=== PATIENT | male | born 1935 | race Caucasian/White ===

== ENCOUNTER 2018-04-23 11:16 | Inpatient (IN) | payer MEDICARE, OTHER | END 2018-04-24 19:03 | disposition home or self-care (01) | LOC: SUR 11:16 → CENTRAL 15:50 | PROC: 0VB08ZZ Excision of Prostate, Via Natural or Artificial Opening Endoscopic (ICD-10-PCS; principal; 2018-04-23 12:27) | PROC: 0TCB8ZZ Extirpation of Matter from Bladder, Via Natural or Artificial Opening Endoscopic (ICD-10-PCS; 2018-04-23 12:27) | DX: N40.1 Benign prostatic hyperplasia with lower urinary tract symptoms (principal); R33.8 Other retention of urine; N21.0 Calculus in bladder ==

== ENCOUNTER 2024-05-22 17:10 | Inpatient (IN) | payer MEDICARE, BC ==
[~2024-05-22] VITALS: Ht 167.6 cm; Wt 84.0 kg
[~2024-05-22 17:10] MED LIST: ASPI-543 PO; CLOP75TA28 PO; EVOL140I SC; FAMO-12 PO; FURO1TAB31 PO; MET25T PO; POTA-220 PO; TAMS0.4C39 PO
[2024-05-22 17:40] VITALS: PULSE 80; RESP 18; O2SAT 94
[2024-05-22] MEDS: SODIUM CHLORIDE 0.9% 1,000 ML IV ONE (17:43)
[2024-05-22 18:37] LABS: Basophils # (auto) 0 10 ^3/uL (0-0.2); Eosinophils # (auto) 0 10 ^3/uL (0-0.8); Lymphocytes # (auto) 0.4 10 ^3/uL (0.4-5.4); Monocytes # (auto) 0.6 10 ^3/uL (0-1.3); Neutrophils # (auto) 3.9 10 ^3/uL (1.6-8.6); Nucleated Red Blood Cells % 0.2 %
[2024-05-22 18:38] LABS: Basophils % (auto) 0.7 % (0.0-2.0); Eosinophils % (auto) 0.6 % (0.0-7.0); Hematocrit 42.4 % (41.0-53.0); Hemoglobin 14.1 g/dL (13.5-17.5); Lymphocytes % (auto) 8.9 % (10.0-50.0); Mean Corpuscular Hemoglobin 35.5 pg (28.0-32.0); Mean Corpuscular Hgb Conc. 33.2 g/dL (32.0-36.0); Mean Corpuscular Volume 106.9 fL (80.0-100.0); Monocytes % (auto) 11.6 % (0.0-12.0); Neutrophils % (auto) 78.2 % (37.0-80.0); Platelet Count (auto) 139 10^3/uL (140-450); Red Blood Cells 3.97 10^6/uL (4.5-5.90); Red Cell Distribution Width 15.1 % (11.8-14.3); White Blood Cell 4.9 10^3/uL (4.4-10.8)
--- NOTE | 2024-05-22 18:42 | DVH ---
CLINICAL INFORMATION: 88 years old, Male; diarrhea. Left lower quadrant pain. TECHNIQUE: Axial CT images of the abdomen and pelvis were obtained without IV contrast. Coronal and s agittal reformatted images were obtained, reviewed, and stored. Evaluation of the parenchymal organs is limited without IV contrast. Evaluation of the bowel and mesentery is limited without oral contras t. All CT scans at this medical facility are performed using dose modulation techniques as appropriat e to a performed exam including the following: Automated exposure control was utilized; adjustment of the MA and/or KV according to patient size; and use of iterative reconstruction technique. CTDIvol = 6.77 mGy DLP = 354.5 mGy-cm COMPARISON: None FINDINGS: Limited examination due to motion artifact. Lung bases: Partially visualized small right and moderate left pleural effusions with overlying atele ctasis fibrotic changes in the lung bases moderate to marked cardiomegaly. 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 Dense mitral annular calcification pacemaker leads exten d to the right atrium and right ventricle. Liver: Grossly unremarkable given the limitations of the exam. Biliary: No calcified gallstones visualized. Spleen: Unremarkable. Pancreas: Atrophic pancreas, not well visualized. Adrenal glands: Partially obscured by motion artifact. Kidneys: No hydronephrosis. Calcifications at the renal rolo bilaterally, appear to be arterial calci fications. Aorta/Vascular: Dense calcification. No abdominal aortic aneurysm. Retroperitoneum: No mass or lymphadenopathy. Bowel/mesentery: Nonspecific nondilated fluid-filled small bowel loops. Appendix is not visualized. T here is mild stranding adjacent to the rectum, possible proctitis. Pelvic organs: Enlarged prostate with impression on the bladder base. Bladder: There are multiple bladder diverticula. There are calculi within the posterior bladder and w ithin the left posterior bladder diverticulum. Abdominal wall: Diffuse body wall edema / anasarca. Left inguinal hernia contains a loop of sigmoid c olon without evidence of obstruction. Bones: No acute fracture or suspicious intraosseous lesion. Chronic appearing deformity of the L5 ama tebral body with up to 20% loss of height. IMPRESSION: 1. Motion limited study. 2. Perirectal inflammatory changes, possible proctitis. 3. Enlarged prostate with impression on the bladder base. 4. Multiple bladder diverticula and bladder calculi. 5. Partially visualized small right and moderate left pleural effusions with overlying atelectasis. 6. Partially visualized cardiomegaly and additional findings as detailed above. 7. Nonspecific nondilated fluid-filled small bowel loops. Findings may be seen with ileus or enterit is in the appropriate clinical setting. No small bowel obstruction. 8. Left inguinal hernia contains a loop of sigmoid colon without evidence for obstruction.
[2024-05-22 18:46] LABS: Urine Bacteria None Seen /hpf (None Seen)
[2024-05-22 18:49] LABS: Alanine Aminotransferase 17 U/L (7-40); Albumin 3.5 g/dL (3.2-4.8); Alkaline Phosphatase 63 U/L (46-116); Anion Gap 9 (5-15); Aspartate Aminotransferase 18 U/L (13-40); BUN/Creatinine Ratio 22.5 (10.0-20.0); Bilirubin, Total 1.1 mg/dL (0.2-1.0); Blood Urea Nitrogen 18 mg/dL (9-23); Calcium 9.2 mg/dL (8.7-10.4); Carbon Dioxide 24 mmol/L (20-31); Glucose 102 mg/dL (74-106); Sodium 140 mmol/L (136-145)
[2024-05-22 18:52] LABS: Chloride 107 mmol/L (98-107); Total Protein 5.5 g/dL (5.7-8.2)
[2024-05-22 19:01] LABS: Urine Blood 2+ /uL (Negative); Urine Clarity Clear (Clear); Urine Color Yellow (Yellow); Urine Hyaline Cast FEW /lpf (0 - 2); Urine Mucus FEW (None Seen); Urine Protein, UAD TRACE (Negative); Urine Specific Gravity 1.017 (1.001-1.035); Urine Squamous Epithelial Cell FEW /hpf (<5); Urine Urobilinogen Normal (Negative); Urine WBC 3 /HPF (0-3); Urine pH 5.5 (5.0-9.0)
--- NOTE | 2024-05-22 19:07 | ED.PDOC ---
History of Present Illness HPI Comments 88Y M with PMHx CHF, CAD, thyroid disease, dementia, and pacemaker presents to ED via EMS for chief complaint abd pain x2days with diarrhea. Patient localizes the pain to the left lower quadrant of his abdomen. Pt is currently A&Ox2. No family present at bedside. Per EMS, pt rhythm was 20-100 paced. Patient is extremely hard of hearing, and is a difficult historian, so no additional history is obtainable from the patient. No other symptoms reported. Chief Complaint: Abdominal Pain Time Seen by MD: 18:35 Reviewed Notes: Nurses Notes, Poultry Dresser Notes, Medications, Allergies Allergies: Coded Allergies: Fentanyl (Verified Allergy, Severe, 04/20/18) Midazolam (Verified Allergy, Severe, 04/20/18) Acetaminophen (Verified Allergy, Unknown, 04/20/18) Albuterol (Verified Allergy, Unknown, 04/20/18) Home Meds Reported Medications Tamsulosin Hcl (Tamsulosin Hcl) 0.4 Mg Cap, 0.4 MG PO QPM for 30 Days, MG 04/20/18 Famotidine (Famotidine) 20 Mg Tab, 20 MG PO BID for 30 Days, MG 04/20/18 Potassium Chloride (Klor-Con M20) 20 Meq Tab, 20 MEQ PO BID, TAB 04/20/18 Furosemide (Lasix) 40 Mg Tab, 40 MG PO BID, TAB 04/20/18 Aspirin (Aspir-Low) 81 Mg Tab, 81 MG PO DAILY for 30 Days, MG 04/20/18 Clopidogrel Bisulfate (Plavix) 75 Mg Tab, 1 TAB PO DAILY, #90 TAB 1 Refill 04/20/18 Information Source: Patient, Relative (Child), Emergency Med Personnel Mode of Arrival: EMS Severity: Moderate Timing: Days Duration: Since onset Prehospital treatment: None Past Medical History PAST MEDICAL HISTORY: CAD, CHF, Dementia, Thyroid Surgical History: Pacemaker Family History Family History: Unknown Social History Smoker: Unknown Alcohol: Unknown Drugs: Unknown Constitutional: denies: chills, diaphoresis, fatigue, fever, malaise, sweats, weakness, others EENTM: denies: blurred vision, double vision, ear bleeding, ear discharge, ear drainage, ear pain, ear ringing, eye pain, eye redness, hearing loss, mouth p ain, mouth swelling, nasal discharge, nose bleeding, nose congestion, nose pain, photophobia, tearing, throat pain, throat swelling, voice changes, others Respiratory: denies: cough, hemoptysis, orthopnea, SOB at rest, shortness of br eath, SOB with excertion, stridor, wheezing, others Cardiovascular: denies: chest pain, dizzy spells, diaphoresis, Dyspnea on exertion, edema, irregular heart beat, left arm pain, lightheadedness, palpitations, PND, syncope, others Gastrointestinal: reports: abdominal pain, diarrhea; denies: abdomen distended, blood streaked bowels, constipated, dysphagia, difficulty swallowing, hematemesis, melena, nausea, poor appetite, poor fluid intake, rectal bleeding, rectal pain, vomiting, others Genitourinary: denies: burning, dysuria, flank pain, frequency, hematuria, incontinence, penile discharge, penile sore, pain, testicle pain, testicle swelling, urgency, others Neurological: denies: dizziness, fainting, headache, left sided numbness, left sided weakness, numbness, paresthesia, pre-existing deficit, right sided numbness, right sided weakness, seizure, speech problems, tingling, tremors, weakness, others Musculoskeletal: denies: back pain, gout, joint pain, joint swelling, muscle pain, muscle stiffness, neck pain, others Integumetry: denies: bruises, change in color, change in hair/nails, dryness, laceration, lesions, lumps, rash, wounds, others Allergic/Immunocompromised: denies: Difficulty Healing, Frequent Infections, Hives, Itching, others Hematologic/Lymphatic: denies: anemia, blood clots, easy bleeding, easy bruising, swollen glands, others Endocrine: denies: excessive hunger, excessive sweating, excessive thirst, excessive urination, flushing, intolerance to cold, intolerance to heat, unexplained weight gain, unexplained weight loss, others Psychiatric: denies: anxiety, bipolar disorder, depression, hopeless, panic disorder, schizophrenia, sleepless, suicidal, others Unable to Obtain due to: Altered Mental Status All Other Systems: Reviewed and Negative Physical Exam General Appearance: No Apparent Distress HEENT: Other (Pupils and face symmetric. Dry mucous membranes.) Neck: Full Range of Motion, Normal Inspection Respiratory: Lungs Clear, No Accessory Muscle Use, No Respiratory Distress, Normal Breath Sounds Cardiovascular: No Edema, No JVD, Regular Rate/Rhythm Breast Exam: Deferred Gastrointestinal: LLQ, Soft, Tenderness Genitalia: Deferred Pelvic: Deferred Rectal: Deferred Extremities: Normal inspection, Normal range of motion, Non-tender, No pedal edema Neurologic: Alert (Oriented x2), Normal Affect, Normal Mood, Other (Hearing deficit. Moves all extremities.) Cerebellar Function: NOT DONE Reflexes: NOT DONE Skin: Dry, Pallor, Warm Lymphatic: NOT DONE Was a procedure done? Was a procedure done?: No EKG EKG : Comments Ventricular paced rhythm, rate 75 Differential Dx Considerations may include: Enteritis, colitis, diverticulitis, bowel obstruction, ischemic bowel, UTI, kidney stone, electrolyte imbalance, hypovolemia/dehydration, among others X-Ray, Labs, Meds, VS Vital Signs Date Time Temp Pulse Resp B/P (MAP) Pulse Ox O2 Delivery O2 Flow Rate FiO2 05/22/24 18:33 60 16 119/67 (84) 96 05/22/24 17:40 80 18 94 Nasal Cannula* 2 28 05/22/24 17:14 98.6 61 14 128/66 (86) 96 05/22/24 17:14 98.6 61 14 128/66 (86) 96 98.6 05/22/24 17:12 75 Lab Test 05/22/24 21:04 05/22/24 19:31 05/22/24 18:44 05/22/24 18:08 Range/Units Troponin I High Sensitivity 79 *H 73 *H 74 *H </=54 ng/L Urine Color Yellow Yellow Urine Clarity Clear Clear Urine pH 5.5 5.0-9.0 Urine Specific [place] 1.017 1.001-1.035 Urine Protein Trace H Negative Urine Ketones Negative Negative Urine Blood 2+ H Negative /uL Urine Nitrite Negative Negative Urine Bilirubin Negative Negative Urine Urobilinogen Normal Negative mg/dL Urine Leukocyte Esterase Negative Negative /uL Urine RBC 80 0 - 3 /hpf Urine Microscopic WBC 3 0-3 /HPF Urine Squamous Epithelial Cells Few <5 /hpf Urine Bacteria None seen None Seen /hpf Urine Hyaline Casts Few 0 - 2 /lpf Urine Mucus Few None Seen Urine Glucose Normal Normal mg/dL White Blood Count 4.9 4.4-10.8 10^3/uL Red Blood Count 3.97 L 4.5-5.90 10^6/uL Hemoglobin 14.1 13.5-17.5 g/dL Hematocrit 42.4 41.0-53.0 % Mean Corpuscular Volume 106.9 H 80.0-100.0 fL Mean Corpuscular Hemoglobin 35.5 H 28.0-32.0 pg Mean Corpuscular Hemoglobin Concent 33.2 32.0-36.0 g/dL Red Cell Distribution Width 15.1 H 11.8-14.3 % Platelet Count 139 L 140-450 10^3/uL Mean Platelet Volume 10.5 6.9-10.8 fL Neutrophils (%) (Auto) 78.2 37.0-80.0 % Lymphocytes (%) (Auto) 8.9 L 10.0-50.0 % Monocytes (%) (Auto) 11.6 0.0-12.0 % Eosinophils (%) (Auto) 0.6 0.0-7.0 % Basophils (%) (Auto) 0.7 0.0-2.0 % Neutrophils # (Auto) 3.9 1.6-8.6 10 ^3/uL Lymphocytes # (Auto) 0.4 0.4-5.4 10 ^3/uL Monocytes # (Auto) 0.6 0-1.3 10 ^3/uL Eosinophils # (Auto) 0 0-0.8 10 ^3/uL Basophils # (Auto) 0 0-0.2 10 ^3/uL Nucleated Red Blood Cells 0.2 % Sodium Level 140 136-145 mmol/L Potassium Level 4.0 3.5-5.1 mmol/L Chloride Level 107 98-107 mmol/L Carbon Dioxide Level 24 20-31 mmol/L Anion Gap 9 5-15 Blood Urea Nitrogen 18 9-23 mg/dL Creatinine 0.80 0.700-1.30 mg/dL Glomerular Filtration Rate Calc 85 >90 mL/min BUN/Creatinine Ratio 22.5 H 10.0-20.0 Serum Glucose 102 74-106 mg/dL Lactic Acid Level 1.5 0.4-2.0 mmol/L Calcium Level 9.2 8.7-10.4 mg/dL Total Bilirubin 1.1 H 0.2-1.0 mg/dL Aspartate Amino Transferase (AST) 18 13-40 U/L Alanine Aminotransferase (ALT) 17 7-40 U/L Alkaline Phosphatase 63 46-116 U/L B-Type Natriuretic Peptide 1583.60 0-100 pg/mL Total Protein 5.5 L 5.7-8.2 g/dL Albumin 3.5 3.2-4.8 g/dL Current Medications Medications (Trade) Dose Ordered Sig/Taryn Route Start Time Stop Time Status Last Admin Sodium Chloride 1,000 ml @ 1,000 mls/hr Q1H ONCE IV 05/22/24 17:30 05/22/24 18:29 DC 05/22/24 17:43 Ceftriaxone Sodium 50 ml @ 100 mls/hr ONCE ONCE IV 05/22/24 22:45 05/22/24 23:14 DC 05/22/24 23:16 Metronidazole 100 ml @ 100 mls/hr ONCE ONCE IV 05/22/24 22:45 05/22/24 23:44 DC 05/22/24 23:42 ORDERING PHYSICIAN: UMAIR CAST MD PROCEDURE(s): ABPL - CT AB PEL WO CON-NO ORAL OR IV REASON: diarrhea llq pain ORDER NUMBER(s): [id number], ACCESSION NUMBER(s): [id number] CLINICAL INFORMATION: 88 years old, Male; diarrhea. Left lower quadrant pain. TECHNIQUE: Axial CT images of the abdomen and pelvis were obtained without IV contrast. Coronal and sagittal reformatted images were obtained, reviewed, and stored. Evaluation of the parenchymal organs is limited without IV contrast. Evaluation of the bowel and mesentery is limited without oral contrast. All CT scans at this medical facility are performed using dose modulation techniques as appropriate to a performed exam including the following: Automated exposure control was utilized; adjustment of the MA and/or KV according to patient size; and use of iterative reconstruction technique. CTDIvol = 6.77 mGy DLP = 354.5 mGy-cm COMPARISON: None FINDINGS: Limited examination due to motion artifact. Lung bases: Partially visualized small right and moderate left pleural effusions with overlying atelectasis fibrotic changes in the lung bases moderate to marked cardiomegaly. Post surgical changes of prior transcatheter aortic valve replacement. Dense mitral annular calcification pacemaker leads extend to the right atrium and right ventricle. Liver: Grossly unremarkable given the limitations of the exam. Biliary: No calcified gallstones visualized. Spleen: Unremarkable. Pancreas: Atrophic pancreas, not well visualized. Adrenal glands: Partially obscured by motion artifact. Kidneys: No hydronephrosis. Calcifications at the renal rolo bilaterally, appear to be arterial calcifications. Aorta/Vascular: Dense calcification. No abdominal aortic aneurysm. Retroperitoneum: No mass or lymphadenopathy. Bowel/mesentery: Nonspecific nondilated fluid-filled small bowel loops. Appendix is not visualized. There is mild stranding adjacent to the rectum, possible proctitis. Pelvic organs: Enlarged prostate with impression on the bladder base. Bladder: There are multiple bladder diverticula. There are calculi within the posterior bladder and within the left posterior bladder diverticulum. Abdominal wall: Diffuse body wall edema / anasarca. Left inguinal hernia contains a loop of sigmoid colon without evidence of obstruction. Bones: No acute fracture or suspicious intraosseous lesion. Chronic appearing deformity of the L5 vertebral body with up to 20% loss of height. IMPRESSION: 1. Motion limited study. 2. Perirectal inflammatory changes, possible proctitis. 3. Enlarged prostate with impression on the bladder base. 4. Multiple bladder diverticula and bladder calculi. 5. Partially visualized small right and moderate left pleural effusions with overlying atelectasis. 6. Partially visualized cardiomegaly and additional findings as detailed above. 7. Nonspecific nondilated fluid-filled small bowel loops. Findings may be seen with ileus or enteritis in the appropriate clinical setting. No small bowel obstruction. 8. Left inguinal hernia contains a loop of sigmoid colon without evidence for obstruction. X-Ray, Labs, Meds, VS Comment 88Y M with PMHx CHF, CAD, thyroid disease, dementia, and pacemaker presents to ED via EMS for chief complaint left lower quadrant abd pain x2days with diarrhea. Vitals remarkable for oxygen saturation 94% on 2 L nasal cannula Exam remarkable for left lower quadrant tenderness to palpation Rhythm strip independently interpreted by me: Sinus rhythm, rate 75, no ectopy. Chest x-ray pending CT abdomen and pelvis IMPRESSION: 1. Motion limited study. 2. Perirectal inflammatory changes, possible proctitis. 3. Enlarged prostate with impression on the bladder base. 4. Multiple bladder diverticula and bladder calculi. 5. Partially visualized small right and moderate left pleural effusions with overlying atelectasis. 6. Partially visualized cardiomegaly and additional findings as detailed above. 7. Nonspecific nondilated fluid-filled small bowel loops. Findings may be seen with ileus or enteritis in the appropriate clinical setting. No small bowel obstruction. 8. Left inguinal hernia contains a loop of sigmoid colon without evidence for obstruction. CBC remarkable for platelets 139, metabolic panel unremarkable, lactate normal, UA positive for blood, protein and RBCs, serial troponin 74, 73 and 79, BNP 1583.6 Patient treated with the following in the ED: L 0.9 normal saline IV bolus, Rocephin 1 g IV, Flagyl 500 mg IV, aspirin 325 mg p.o. On re-evaluation, patient is resting comfortably with stable vitals. Plan is to admit the patient for IV antibiotics, GI and Cardiology evaluation. Time of 1ST Reevaluation: 19:05 Reevaluation 1ST: Unchanged Patient Education/Counseling: Diagnosis, Treatment Family Education/Counseling: No Family Present Departure 1 Departure Time of Disposition: 21:30 Impression: Primary Impression: Proctitis Additional Impressions: Enteritis Elevated troponin Disposition: ADMITTED INPATIENT Admit to: Tele Condition: Guarded Critical Care Note Critical Care Time?: No Stability Stability form required: No Heart Score Heart Score: Heart Score Response (Comments) Value History N/A 0 EKG N/A 0 Age N/A 0 Risk Factors N/A 0 Troponin N/A 0 Total 0 I personally scribed for UMAIR CAST MD ([email or web address]) on 05/22/24 at 19:07. Electronically submitted by Vero Braswell ([email or web address]). UMAIR CAST MD May 22, 2024 19:07
[2024-05-22 19:57] VITALS: PULSE 75; RESP 17; O2SAT 100
[2024-05-22] MEDS: cefTRIAXone 1GM/50ML D5W 50 ML IV ONE (23:16)
[2024-05-22] MEDS: metroNIDAZOLE 500MG/100ML 100 ML IV ONE (23:42)
[2024-05-22] MEDS ORDERED: ONDANSETRON HCL 4 MG/2 ML VIAL IV PRN (23:45)
[2024-05-22] MEDS ORDERED: DOCUSATE SOD 100 MG CAP PO PRN (23:45)
[2024-05-23] VITALS (9 sets, daily range): BP systolic 117–133; BP diastolic 46–55; PULSE 65–96; RESP 16–19; TEMP 96.3–97.7; O2SAT 96–100
[2024-05-23] MEDS: ASPirin 81 mg TAB PO ONE (00:03)
--- NOTE | 2024-05-23 01:17 | DVH ---
CHEST RADIOGRAPH Indication: elevated trop Technique: Single frontal view of the chest was obtained COMPARISON: None FINDINGS: Lines and Tubes: Dual-lead pacemaker overlying left chest wall. Lungs: Pulmonary edema. Pleura: Probable small bilateral pleural effusions. No pneumothorax. Cardiomediastinal contours: Moderate cardiomegaly. Bones: Unremarkable IMPRESSION: Cardiomegaly and pulmonary edema.
[2024-05-23] MEDS: ASPirin 325 MG TAB PO ONE (01:50)
[2024-05-23] MEDS ORDERED: MORPHINE SULFATE INJ 2 MG/ml SYRG IV PRN (02:00)
[2024-05-23] MEDS ORDERED: NITROGLYCERIN 0.4 MG SL TAB SL PRN (02:00)
--- NOTE | 2024-05-23 02:17 | DVHHP2 ---
History of Present Illness Reason for Visit: Acute exacerbation of congestive heart failure History of Present Illness The patient is a 88-year-old male hard of hearing with past medical history of C HF, dementia, Coronary artery disease, and thyroid disease who presented to [facility] ED with complaint of abdominal pain and diarrhea for the past 2 days. Patient was seen and evaluated in the ED, laboratory data shows WBC 4.9, platelets 139, sodium 140, potassium 4.0, BUN 18, creatinine 0.80, GFR 85, glucose 102, total bilirubin 1.1, troponin 74, protein 5.5, BNP 1931.31, blood pressure 119/67, heart rate 60, temperature 98.6 F, O2 saturation 96% on oxygen. Abdomen/pelvis CT revealing enlarged prostate with impression on the bladder base, perirectal inflammatory changes, possible proctitis, nonspecific nondilated fluid-filled small bowel loops; findings may be seen with ileus or enteritis, no small bowel obstruction. Chest x-ray revealing cardiomegaly and pulmonary edema. Patient was started on IV antibiotic regimen Rocephin, given IV Lasix, please see medication orders section in the computer. On my assessment, patient denied chest pain, no headache, no dizziness, currently on oxygen, no diarrhea, no nausea, no vomiting, no fever, no chills. Patient was admitted for further evaluation and medical management. Past Medical History CAD, CHF, Dementia, Thyroid Past Surgical History Pacemaker Family History Reviewed, noncontributory to the management of this case. Past Social History The patient lives at home, denies smoking, alcohol or illicit drugs abuse. Review of Systems Constitutional: Yes: Weakness; No: Fever, Chills, Sweats, Malaise, Other Eyes: No: Pain, Vision change, Conjunctivae inflammation, Eyelid inflammation, Other, Redness ENT: No: Ear pain, Ear discharge, Nose pain, Nose discharge, Nose congestion, Mouth pain, Mouth swelling, Throat pain, Throat swelling, Other Respiratory: Shortness of breath; No: Cough, Dry, SOB with excertion, Wheezing, Hemoptysis, Pleuritic Pain, Sputum, Wheezing, Other Cardiovascular: No: Chest Pain, Palpitations, Orthopnea, Paroxysmal Noc. Dyspnea, Edema, Lt Headedness, Other Gastrointestinal: Abdominal Pain, Diarrhea; No: Nausea, Vomiting, Constipation, Melena, Hematochezia, Other Genitourinary: No Dysuria, No Frequency, No Incontinence, No Hematuria, No Retention, No Other Musculoskeletal: No: other, neck pain, shoulder pain, arm pain, back pain, hand pain, leg pain, foot pain Skin: No: Rash, Lesions, Jaundice, Bruising, Other Neurological: No: Weakness, Numbness, Incoordination, Change in speech, Confusion, Seizures, Other Allergies: Coded Allergies: Fentanyl (Verified Allergy, Severe, 04/20/18) Midazolam (Verified Allergy, Severe, 04/20/18) Acetaminophen (Verified Allergy, Unknown, 04/20/18) Albuterol (Verified Allergy, Unknown, 04/20/18) Medications Current Medications Medications Dose Ordered Sig/Taryn Route Start Time Stop Time Status Last Admin Dose Admin Aspirin 81 mg DAILY PO 05/23/24 10:00 Ceftriaxone Sodium 50 ml @ 100 mls/hr DAILY@09 IV 05/24/24 09:00 Metronidazole 100 ml @ 100 mls/hr Q8HR IV 05/23/24 06:00 Furosemide 20 mg DAILY IV 05/23/24 10:00 Sodium Chloride 10 ml Q8HR IV 05/23/24 06:00 Ondansetron HCl 4 mg Q4HP PRN IV 05/22/24 23:45 Docusate Sodium 100 mg BIDPRN PRN PO 05/22/24 23:45 Exam Vital Signs Vital Signs Date Time Temp Pulse Resp B/P (MAP) Pulse Ox O2 Delivery O2 Flow Rate FiO2 05/22/24 22:00 75 18 132/58 (82) 100 05/22/24 19:57 98.0 98.0 05/22/24 19:57 Nasal Cannula* 2 28 General Appearance: Alert, Cooperative, No acute distress, Other (Oriented x2) HEENT: Atraumatic, PERRLA, EOMI, Mucous membr. moist/pink Respiratory: Normal air movement, Other (Diminished breath sounds) Cardiovascular: Regular rate, Normal S1, Normal S2, No murmurs Abdominal: Normal bowel sounds, Soft, No tenderness, No hepatospenomegaly, No masses Extremities: No clubbing, No cyanosis, No edema, Normal pulses, No tenderness/swelling Skin: No rashes, No breakdown, No significant lesion Neuro: Normal speech, Normal tone, Sensation intact, Cranial nerves 3-12 NL, Reflexes 2+, Other (Generalized weakness) Psych/Mental Status: Mental status NL, Mood NL Labs/Xrays Labs Test 05/23/24 01:05 05/22/24 23:50 05/22/24 18:44 05/22/24 18:08 Range/Units Troponin I High Sensitivity 87 *H </=54 ng/L B-Type Natriuretic Peptide 1931.31 0-100 pg/mL Urine Color Yellow Yellow Urine Clarity Clear Clear Urine pH 5.5 5.0-9.0 Urine Specific [place] 1.017 1.001-1.035 Urine Protein Trace H Negative Urine Ketones Negative Negative Urine Blood 2+ H Negative /uL Urine Nitrite Negative Negative Urine Bilirubin Negative Negative Urine Urobilinogen Normal Negative mg/dL Urine Leukocyte Esterase Negative Negative /uL Urine RBC 80 0 - 3 /hpf Urine Microscopic WBC 3 0-3 /HPF Urine Squamous Epithelial Cells Few <5 /hpf Urine Bacteria None seen None Seen /hpf Urine Hyaline Casts Few 0 - 2 /lpf Urine Mucus Few None Seen Urine Glucose Normal Normal mg/dL White Blood Count 4.9 4.4-10.8 10^3/uL Red Blood Count 3.97 L 4.5-5.90 10^6/uL Hemoglobin 14.1 13.5-17.5 g/dL Hematocrit 42.4 41.0-53.0 % Mean Corpuscular Volume 106.9 H 80.0-100.0 fL Mean Corpuscular Hemoglobin 35.5 H 28.0-32.0 pg Mean Corpuscular Hemoglobin Concent 33.2 32.0-36.0 g/dL Red Cell Distribution Width 15.1 H 11.8-14.3 % Platelet Count 139 L 140-450 10^3/uL Mean Platelet Volume 10.5 6.9-10.8 fL Neutrophils (%) (Auto) 78.2 37.0-80.0 % Lymphocytes (%) (Auto) 8.9 L 10.0-50.0 % Monocytes (%) (Auto) 11.6 0.0-12.0 % Eosinophils (%) (Auto) 0.6 0.0-7.0 % Basophils (%) (Auto) 0.7 0.0-2.0 % Neutrophils # (Auto) 3.9 1.6-8.6 10 ^3/uL Lymphocytes # (Auto) 0.4 0.4-5.4 10 ^3/uL Monocytes # (Auto) 0.6 0-1.3 10 ^3/uL Eosinophils # (Auto) 0 0-0.8 10 ^3/uL Basophils # (Auto) 0 0-0.2 10 ^3/uL Nucleated Red Blood Cells 0.2 % Sodium Level 140 136-145 mmol/L Potassium Level 4.0 3.5-5.1 mmol/L Chloride Level 107 98-107 mmol/L Carbon Dioxide Level 24 20-31 mmol/L Anion Gap 9 5-15 Blood Urea Nitrogen 18 9-23 mg/dL Creatinine 0.80 0.700-1.30 mg/dL Glomerular Filtration Rate Calc 85 >90 mL/min BUN/Creatinine Ratio 22.5 H 10.0-20.0 Serum Glucose 102 74-106 mg/dL Lactic Acid Level 1.5 0.4-2.0 mmol/L Calcium Level 9.2 8.7-10.4 mg/dL Total Bilirubin 1.1 H 0.2-1.0 mg/dL Aspartate Amino Transferase (AST) 18 13-40 U/L Alanine Aminotransferase (ALT) 17 7-40 U/L Alkaline Phosphatase 63 46-116 U/L Total Protein 5.5 L 5.7-8.2 g/dL Albumin 3.5 3.2-4.8 g/dL PATIENT: TERESA PENNINGTON ACCT: [id number] UNIT: [id number] : 1935 LOC: ER ROOM / BED: / AGE / SEX: 88 / M ADM STATUS: REG ER SERVICE [id number] ORDERING PHYSICIAN: UMAIR CAST MD PROCEDURE(s): ABPL - CT AB PEL WO CON-NO ORAL OR IV REASON: diarrhea llq pain ORDER NUMBER(s): [id number], ACCESSION NUMBER(s): [id number] CLINICAL INFORMATION: 88 years old, Male; diarrhea. Left lower quadrant pain. TECHNIQUE: Axial CT images of the abdomen and pelvis were obtained without IV contrast. Coronal and sagittal reformatted images were obtained, reviewed, and stored. Evaluation of the parenchymal organs is limited without IV contrast. Evaluation of the bowel and mesentery is limited without oral contrast. All CT scans at this medical facility are performed using dose modulation techniques as appropriate to a performed exam including the following: Automated exposure control was utilized; adjustment of the MA and/or KV according to patient size; and use of iterative reconstruction technique. CTDIvol = 6.77 mGy DLP = 354.5 mGy-cm COMPARISON: None FINDINGS: Limited examination due to motion artifact. Lung bases: Partially visualized small right and moderate left pleural effusions with overlying atelectasis fibrotic changes in the lung bases moderate to marked cardiomegaly. Post surgical changes of prior transcatheter aortic valve replacement. Dense mitral annular calcification pacemaker leads extend to the right atrium and right ventricle. Liver: Grossly unremarkable given the limitations of the exam. Biliary: No calcified gallstones visualized. Spleen: Unremarkable. Pancreas: Atrophic pancreas, not well visualized. Adrenal glands: Partially obscured by motion artifact. Kidneys: No hydronephrosis. Calcifications at the renal rolo bilaterally, appear to be arterial calcifications. Aorta/Vascular: Dense calcification. No abdominal aortic aneurysm. Retroperitoneum: No mass or lymphadenopathy. Bowel/mesentery: Nonspecific nondilated fluid-filled small bowel loops. Appendix is not visualized. There is mild stranding adjacent to the rectum, possible proctitis. Pelvic organs: Enlarged prostate with impression on the bladder base. Bladder: There are multiple bladder diverticula. There are calculi within the posterior bladder and within the left posterior bladder diverticulum. Abdominal wall: Diffuse body wall edema / anasarca. Left inguinal hernia contains a loop of sigmoid colon without evidence of obstruction. Bones: No acute fracture or suspicious intraosseous lesion. Chronic appearing deformity of the L5 vertebral body with up to 20% loss of height. IMPRESSION: 1. Motion limited study. 2. Perirectal inflammatory changes, possible proctitis. 3. Enlarged prostate with impression on the bladder base. 4. Multiple bladder diverticula and bladder calculi. 5. Partially visualized small right and moderate left pleural effusions with overlying atelectasis. 6. Partially visualized cardiomegaly and additional findings as detailed above. 7. Nonspecific nondilated fluid-filled small bowel loops. Findings may be seen with ileus or enteritis in the appropriate clinical setting. No small bowel obstruction. 8. Left inguinal hernia contains a loop of sigmoid colon without evidence for obstruction. ORDERING PHYSICIAN: UMAIR CAST MD PROCEDURE(s): CXR1 - CHEST XRAY 1 VIEW REASON: elevated trop ORDER NUMBER(s): [id number], ACCESSION NUMBER(s): [id number] CHEST RADIOGRAPH Indication: elevated trop Technique: Single frontal view of the chest was obtained COMPARISON: None FINDINGS: Lines and Tubes: Dual-lead pacemaker overlying left chest wall. Lungs: Pulmonary edema. Pleura: Probable small bilateral pleural effusions. No pneumothorax. Cardiomediastinal contours: Moderate cardiomegaly. Bones: Unremarkable IMPRESSION: Cardiomegaly and pulmonary edema. Assessment/Plan Assessment/Plan Generalized weakness Proctitis Acute abdominal pain Enteritis Elevated troponin Acute exacerbation of congestive heart failure Plan 1. Admit to telemetry unit 2. Breathing treatment 3. Pain control management 4. IV antibiotic management 5. Management of fluids and electrolytes 6. Consultation for Cardiology/hospitalist 7. Diagnostic test chest x-ray 8. DVT prophylaxis on aspirin 9. Repeat labs CBC, CMP in a.m. 10. Home medication reviewed and reconciled 11. Continue with current medical management 12. Treatment plan discussed with patient and RN. Patient will need reinstatement information given mental status. Plan discussed with: Patient, Other (RN) My Orders Orders - XAVIER HARVEY DNP Procedure Category Date Status Time Aspirin Tablet PHA 05/23/24 In Process 10:00 Metronidazole PHA 05/23/24 In Process 500mg/100ml (Flagyl 06:00 Furosemide Injection PHA 05/23/24 In Process (Lasix Injection) 10:00 Allergies KEELEY 05/22/24 In Process 23:34 Code Status CODE 05/22/24 Transmitted 23:34 Sodium Chloride Lock PHA 05/23/24 In Process (Saline Lock Ns) 06:00 Oxygen Per Hour RT 05/22/24 Transmitted 23:34 Ondansetron Hcl PHA 05/22/24 In Process (Zofran) 23:45 Docusate Sodium PHA 05/22/24 In Process Capsule (Colace 23:45 Fall Risk Precautions KEELEY 05/22/[address] 23:34 Complete Blood Count LAB 05/23/24 Logged 04:00 Comprehensive LAB 05/23/24 Logged Metabolic Panel 04:00 Cardiac DIET 05/23/24 Transmitted Diet-2gna,Lofat,Lochol Breakfast Condition: Serious KEELEY 05/22/24 In Process 23:34 Bedrest With Bathroom KEELEY 05/22/24 In Process Privileg 23:34 Sequential KEELEY 05/22/24 In Process Compression Device Ceftriaxone 1gm/50ml PHA 05/24/24 In Process D5w (Rocephin) 09:00 * Cardiology Consult CONS 05/23/24 Transmitted 01:53 Furosemide Injection PHA 05/23/24 Transmitted (Lasix Injection) 02:00 Tamsulosin PHA 05/23/24 Transmitted Hydrochloride (Flomax) 18:00 Clopidogrel Bisulfate PHA 05/23/24 Transmitted (Plavix) 10:00 Famotidine Injection PHA 05/23/24 Transmitted (Pepcid Injection) 10:00 Admit ADMIT 05/23/24 Transmitted 01:53 Nitroglycerin PHA 05/23/24 Transmitted Sublingual (Ntrostat 02:00 Morphine Sulfate PHA 05/23/24 Transmitted Injection 02:00 Stat Ekg For Chest KEELEY 05/23/24 In Process Pain 01:53 Notify Md Of Changes [facility] 05/23/24 In Process From Base 01:53 Substance Abuse Specialist For [facility] 05/23/24 In Process 24 Hours 01:53 Emergency Dysrhythmia [facility] 05/23/24 In Process Protocol 01:53 Rhythm Strips Once [facility] 05/23/24 In Process Every Shift 01:53 Oxygen By Nasal RT 05/23/24 Transmitted Cannula 01:53 Problem List: (1) Generalized weakness (2) Acute abdominal pain (3) Proctitis (4) Elevated troponin (5) Enteritis (6) Acute exacerbation of congestive heart failure Date of Service: May 23, 2024 Billing Provider: XAVIER HARVEY DNP Common Visit Codes: 20986-DUXTHCF INP/OBS CARE (HIGH) XAVIER HARVEY DNP May 23, 2024 02:17
[2024-05-23] MEDS: FUROSEMIDE 40 MG/4 ML VIAL IV ONE (03:16)
[2024-05-23] MEDS: metroNIDAZOLE 500MG/100ML 100 ML IV SCH ×2 (06:59→22:00)
[2024-05-23] MEDS: SODIUM CHLOR 0.9% PF (SALINE LOCK) 10ML VIAL/SYR IV SCH (06:59)
--- NOTE | 2024-05-23 08:41 | DVHINCON2 ---
Date of service: May 23, 2024 History of Present Illness HPI Patient is a 88-year-old gentleman who presented to the hospital with days of abdominal pain and diarrhea. He did receive some course of antibiotics as outpatient recently. Patient is known to our practice from outside and before. Cardiology is involved for cardiac aspects of care. Patient does have history of coronary artery disease and has had CABG and aortic valve replacement before. Does have pacemaker and does have persistent atrial fibrillation. His history also includes advanced pulmonary fibrosis on home oxygen. Home Meds Reported Medications Tamsulosin Hcl (Tamsulosin Hcl) 0.4 Mg Cap, 0.4 MG PO QPM for 30 Days, MG 04/20/18 Famotidine (Famotidine) 20 Mg Tab, 20 MG PO BID for 30 Days, MG 04/20/18 Potassium Chloride (Klor-Con M20) 20 Meq Tab, 20 MEQ PO BID, TAB 04/20/18 Furosemide (Lasix) 40 Mg Tab, 40 MG PO BID, TAB 04/20/18 Aspirin (Aspir-Low) 81 Mg Tab, 81 MG PO DAILY for 30 Days, MG 04/20/18 Clopidogrel Bisulfate (Plavix) 75 Mg Tab, 1 TAB PO DAILY, #90 TAB 1 Refill 04/20/18 Past Medical History Others Past medical history includes coronary artery disease and status post CABG (1991), valvular heart disease and status post aortic valve replacement, persistent atrial fibrillation (on Eliquis as outpatient), sick sinus syndrome and status post pacemaker ([employer]) placement, 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 Patient Family History: FH: cancer G8 MOTHER Smoker: No Hx (Negative) Alocohol: None Drugs: None Review of Systems Constitutional: No symptom reported Ears, Nose, & Throat: No symptom reported Gastrointestinal: Abdominal Pain, Diarrhea Genitourinary: Incontinence All Other Systems 14 point review of system was performed. Relevant findings as per above and as per HPI. Otherwise negative H&P Exam Vital Signs Vital Signs Date Time Temp Pulse Resp B/P (MAP) Pulse Ox O2 Delivery O2 Flow Rate FiO2 05/23/24 06:21 97.5 74 16 123/55 (77) 98 97.5 05/23/24 06:16 Nasal Cannula* 2 28 General Appeara: Cachetic, Thin Eye Exam: bilateral eye PERRL Pulmonary/Respiratory: Rales, Rhonci Cardiovascular/Chest: Systolic murmur Abdominal Exam: Normal bowel sounds, Soft Labs/Xrays Labs Test 05/23/24 01:05 05/22/24 23:50 05/22/24 18:44 05/22/24 18:08 Range/Units Troponin I High Sensitivity 87 *H </=54 ng/L B-Type Natriuretic Peptide 1931.31 0-100 pg/mL Urine Color Yellow Yellow Urine Clarity Clear Clear Urine pH 5.5 5.0-9.0 Urine Specific [place] 1.017 1.001-1.035 Urine Protein Trace H Negative Urine Ketones Negative Negative Urine Blood 2+ H Negative /uL Urine Nitrite Negative Negative Urine Bilirubin Negative Negative Urine Urobilinogen Normal Negative mg/dL Urine Leukocyte Esterase Negative Negative /uL Urine RBC 80 0 - 3 /hpf Urine Microscopic WBC 3 0-3 /HPF Urine Squamous Epithelial Cells Few <5 /hpf Urine Bacteria None seen None Seen /hpf Urine Hyaline Casts Few 0 - 2 /lpf Urine Mucus Few None Seen Urine Glucose Normal Normal mg/dL White Blood Count 4.9 4.4-10.8 10^3/uL Red Blood Count 3.97 L 4.5-5.90 10^6/uL Hemoglobin 14.1 13.5-17.5 g/dL Hematocrit 42.4 41.0-53.0 % Mean Corpuscular Volume 106.9 H 80.0-100.0 fL Mean Corpuscular Hemoglobin 35.5 H 28.0-32.0 pg Mean Corpuscular Hemoglobin Concent 33.2 32.0-36.0 g/dL Red Cell Distribution Width 15.1 H 11.8-14.3 % Platelet Count 139 L 140-450 10^3/uL Mean Platelet Volume 10.5 6.9-10.8 fL Neutrophils (%) (Auto) 78.2 37.0-80.0 % Lymphocytes (%) (Auto) 8.9 L 10.0-50.0 % Monocytes (%) (Auto) 11.6 0.0-12.0 % Eosinophils (%) (Auto) 0.6 0.0-7.0 % Basophils (%) (Auto) 0.7 0.0-2.0 % Neutrophils # (Auto) 3.9 1.6-8.6 10 ^3/uL Lymphocytes # (Auto) 0.4 0.4-5.4 10 ^3/uL Monocytes # (Auto) 0.6 0-1.3 10 ^3/uL Eosinophils # (Auto) 0 0-0.8 10 ^3/uL Basophils # (Auto) 0 0-0.2 10 ^3/uL Nucleated Red Blood Cells 0.2 % Sodium Level 140 136-145 mmol/L Potassium Level 4.0 3.5-5.1 mmol/L Chloride Level 107 98-107 mmol/L Carbon Dioxide Level 24 20-31 mmol/L Anion Gap 9 5-15 Blood Urea Nitrogen 18 9-23 mg/dL Creatinine 0.80 0.700-1.30 mg/dL Glomerular Filtration Rate Calc 85 >90 mL/min BUN/Creatinine Ratio 22.5 H 10.0-20.0 Serum Glucose 102 74-106 mg/dL Lactic Acid Level 1.5 0.4-2.0 mmol/L Calcium Level 9.2 8.7-10.4 mg/dL Total Bilirubin 1.1 H 0.2-1.0 mg/dL Aspartate Amino Transferase (AST) 18 13-40 U/L Alanine Aminotransferase (ALT) 17 7-40 U/L Alkaline Phosphatase 63 46-116 U/L Total Protein 5.5 L 5.7-8.2 g/dL Albumin 3.5 3.2-4.8 g/dL Assessment/Plan Plan Patient is a 88-year-old gentleman who presented to the hospital with days of abdominal pain and diarrhea. He did receive some course of antibiotics as outpatient recently. Patient is known to our practice from outside and before. Cardiology is involved for cardiac aspects of care. Patient does have history of coronary artery disease and has had CABG and aortic valve replacement before. Does have pacemaker and does have persistent atrial fibrillation. His history also includes advanced pulmonary fibrosis on home oxygen. Elderly gentleman with poor functional capacity and frail. No JVD. Mucosa is pink and wet. No carotid bruit. Lungs reveal scattered rhonchi and crackles. Cardiac: Regular, no thrill/gallop. Systolic murmur 3/6 in the apex is heard. Abdomen is soft. Bowel sound is positive. There is no peripheral edema. Dorsalis pedis is 1+ bilateral. 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 Creatinine: 0.8 Potassium: 4.0 BNP: 1583.60 - 1931.31 Troponin (high sensitive): 74 - 73 - 79 - 87 - 87 Chest x-ray reported: Lines and Tubes: Dual-lead pacemaker overlying left chest wall. Lungs: Pulmonary edema. Pleura: Probable small bilateral pleural effusions. No pneumothorax. Cardiomediastinal contours: Moderate cardiomegaly. Bones: Unremarkable IMPRESSION: Cardiomegaly and pulmonary edema. CT of the abdomen and pelvis reported: IMPRESSION: 1. Motion limited study. 2. Perirectal inflammatory changes, possible proctitis. 3. Enlarged prostate with impression on the bladder base. 4. Multiple bladder diverticula and bladder calculi. 5. Partially visualized small right and moderate left pleural effusions with overlying atelectasis. 6. Partially visualized cardiomegaly and additional findings as detailed above. 7. Nonspecific nondilated fluid-filled small bowel loops. Findings may be seen with ileus or enteritis in the appropriate clinical setting. No small bowel obstruction. 8. Left inguinal hernia contains a loop of sigmoid colon without evidence for obstruction. EKG revealed baseline atrial fibrillation with paced ventricular rhythm Patient is a 88-year-old gentleman who does have dementia and poor hearing and presented with abdominal pain and diarrhea. Has been having diarrhea for few days. There is question about weight loss. Completed some course of antibiotics recently. Comorbidities includes coronary artery disease/atrial fibrillation/peripheral artery disease/carotid artery stenosis/dementia/poor functional capacity. Troponin was minimally elevated and flat. Presentation is not considered acute coronary syndrome. No ischemic workup is indicated at this point. Increased BNP points toward component of heart failure. Abdominal pain Diarrhea Diastolic heart failure Coronary artery disease, status post CABG Valvular heart disease, status post aortic valve replacement Persistent AFib Sick sinus syndrome, status post pacemaker implantation Pulmonary fibrosis/advanced COPD Peripheral artery disease Carotid artery stenosis Dementia Poor hearing Hypertension Hyperlipidemia Proctitis/ileus/enteritis Cardiac suggestion for management: Managed on telemetry Follow-up electrolytes and kidney function tests and correct abnormalities Request for Echocardiogram Request for interrogation of pacemaker ([employer]) Continuation of anticoagulation (on Eliquis: 2.5 mg b.i.d. as outpatient) is suggested Request for D-dimer. If D-dimer is abnormal request for CT angio of the chest and venous Doppler of lower extremities. If D-dimer is normal request for CT of the chest without contrast Request for C diff Request for GI consultation Further evaluation and management depends on the above and clinical course Thank you for consultation A total of 75 minutes was spent reviewing the patient record, examining the patient, making a diagnostic and therapeutic plan, discussing this plan with medical personnel, following up on diagnostic studies and following the patient for clinical stability excluding any and all procedures. At least 50% of this time was spent in direct, [id number] contact. Thank you for allowing me to participate in this patient's care. Further recommendations will depend on patient's clinical course. Please do not hesitate to contact me if you have any questions or concerns. This medical document was created using electronic medical record system with [employer] computerized dictation system. Although this document has been carefully reviewed, there may still be some phonetic and typographical errors. These areas are purely typographical due to the imperfection of the software programs, and do not reflect any compromise in the patient's medical care. Plan discussed with: Patient, Other (nurse) CARLOS OGLESBY MD May 23, 2024 08:41
[2024-05-23] MEDS: APIXABAN 2.5 MG TAB PO SCH (09:56)
[2024-05-23] MEDS: CLOPIDOGREL BISULFATE 75 MG TAB PO SCH (09:56)
[2024-05-23] MEDS: FAMOTIDINE (10MG/ML) 2ML VL IV SCH (09:57)
[2024-05-23] MEDS: ASPirin 81 mg TAB PO SCH (09:57)
[2024-05-23] MEDS: FUROSEMIDE 20 MG/2 ML VIAL IV SCH (09:57)
[2024-05-23 11:01] LABS: Basophils # (auto) 0 10 ^3/uL (0-0.2); Eosinophils # (auto) 0.1 10 ^3/uL (0-0.8); Lymphocytes # (auto) 0.4 10 ^3/uL (0.4-5.4); Monocytes # (auto) 0.5 10 ^3/uL (0-1.3); Neutrophils # (auto) 2.4 10 ^3/uL (1.6-8.6); Nucleated Red Blood Cells % 0.1 %; Red Blood Cells 4.14 10^6/uL (4.5-5.90)
[2024-05-23 11:04] LABS: Basophils % (auto) 0.7 % (0.0-2.0); Eosinophils % (auto) 3.3 % (0.0-7.0); Hematocrit 44.2 % (41.0-53.0); Hemoglobin 14.4 g/dL (13.5-17.5); Lymphocytes % (auto) 12.1 % (10.0-50.0); Mean Corpuscular Hemoglobin 34.8 pg (28.0-32.0); Mean Corpuscular Hgb Conc. 32.6 g/dL (32.0-36.0); Mean Corpuscular Volume 106.8 fL (80.0-100.0); Monocytes % (auto) 14.7 % (0.0-12.0); Neutrophils % (auto) 69.2 % (37.0-80.0); Platelet Count (auto) 142 10^3/uL (140-450); Red Cell Distribution Width 15.2 % (11.8-14.3); White Blood Cell 3.4 10^3/uL (4.4-10.8)
[2024-05-23 11:20] LABS: Alanine Aminotransferase 12 U/L (7-40); Albumin 3.3 g/dL (3.2-4.8); Alkaline Phosphatase 65 U/L (46-116); Anion Gap 10 (5-15); Aspartate Aminotransferase 13 U/L (13-40); BUN/Creatinine Ratio 12.9 (10.0-20.0); Bilirubin, Total 0.9 mg/dL (0.2-1.0); Blood Urea Nitrogen 11 mg/dL (9-23); Carbon Dioxide 26 mmol/L (20-31); Chloride 105 mmol/L (98-107); Glucose 88 mg/dL (74-106); Sodium 141 mmol/L (136-145); Total Protein 5.8 g/dL (5.7-8.2)
[2024-05-23] MEDS: POTASSIUM CHL 20 Meq TABLET PO ONE (11:59)
--- NOTE | 2024-05-23 12:54 | DVHPN2 ---
Reviewed: Care Plan, H&P, Labs, Medications, Previous Orders, Radiology Changes from previous H/P or p: No Changes Eyes: No Pain, No Vision change, No Conjunctivae inflammation, No Eyelid inflammation, No Other, No Redness ENT: No Ear pain, No Ear discharge, No Nose pain, No Nose discharge, No Nose congestion, No Mouth pain, No Mouth swelling, No Throat pain, No Throat swelling, No Other Cardiovascular: No Chest Pain, No Palpitations, No Orthopnea, No Paroxysmal Noc. Dyspnea, No Edema, No Lt Headedness, No Other Respiratory: No Cough, No Dry; Shortness of breath; No SOB with excertion, No Wheezing, No Hemoptysis, No Pleuritic Pain, No Sputum, No Other Gastrointestinal: No Nausea, No Vomiting; Abdominal Pain, Diarrhea; No Constipation, No Melena, No Hematochezia, No Other Genitourinary: No Dysuria, No Frequency, No Incontinence, No Hematuria, No Retention, No Other Musculoskeletal: No other, No neck pain, No shoulder pain, No arm pain, No back pain, No hand pain, No leg pain, No foot pain Skin: No Rash, No Lesions, No Jaundice, No Bruising, No Other Objective Vitals Vital Signs Date Time Temp Pulse Resp B/P (MAP) Pulse Ox O2 Delivery O2 Flow Rate FiO2 05/23/24 12:18 96.3 78 19 133/51 (78) 96 96.3 05/23/24 06:16 Nasal Cannula* 2 28 Intake/Output Intake and Output 05/23/24 07:00 Intake Total 1150 ml Balance 1150 ml Intake IV Total 1150 ml Medications Current Medications Medications Dose Ordered Sig/Taryn Route Start Time Stop Time Status Last Admin Dose Admin Aspirin 81 mg DAILY PO 05/23/24 10:00 05/23/24 09:57 81 MG Ceftriaxone Sodium 50 ml @ 100 mls/hr DAILY@09 IV 05/24/24 09:00 Metronidazole 100 ml @ 100 mls/hr Q8HR IV 05/23/24 06:00 05/23/24 06:59 100 MLS/HR Furosemide 20 mg DAILY IV 05/23/24 10:00 05/23/24 09:57 20 MG Sodium Chloride 10 ml Q8HR IV 05/23/24 06:00 05/23/24 06:59 10 ML Ondansetron HCl 4 mg Q4HP PRN IV 05/22/24 23:45 Docusate Sodium 100 mg BIDPRN PRN PO 05/22/24 23:45 Tamsulosin HCl 0.4 mg QPM PO 05/23/24 18:00 Clopidogrel Bisulfate 75 mg DAILY PO 05/23/24 10:00 05/23/24 09:56 75 MG Famotidine 20 mg DAILY IV 05/23/24 10:00 05/23/24 09:57 20 MG Nitroglycerin 0.4 mg Q5MINP PRN SL 05/23/24 02:00 Morphine Sulfate 2 mg Q30M PRN IV 05/23/24 02:00 Apixaban 2.5 mg BID PO 05/23/24 10:00 05/23/24 09:56 2.5 MG Laboratory Results Laboratory Tests 05/23/24 09:58 Chemistry Test 05/22/24 18:08 05/23/24 09:58 Albumin 3.5 g/dL (3.2-4.8) 3.3 g/dL (3.2-4.8) Calcium Level 9.2 mg/dL (8.7-10.4) 9.0 mg/dL (8.7-10.4) Total Protein 5.5 g/dL (5.7-8.2) L 5.8 g/dL (5.7-8.2) Coagulation Test 05/23/24 09:58 D-Dimer, Quantitative Pending Cardiac Markers Test 05/22/24 18:08 05/22/24 23:50 B-Type Natriuretic Peptide 1583.60 pg/mL (0-100) 1931.31 pg/mL (0-100) LFT Test 05/22/24 18:08 05/23/24 09:58 Alanine Aminotransferase (ALT) 17 U/L (7-40) 12 U/L (7-40) Alkaline Phosphatase 63 U/L (46-116) 65 U/L (46-116) Aspartate Amino Transferase (AST) 18 U/L (13-40) 13 U/L (13-40) Total Bilirubin 1.1 mg/dL (0.2-1.0) H 0.9 mg/dL (0.2-1.0) Urinalysis Test 05/22/24 18:44 Urine Color Yellow (Yellow) Urine Clarity Clear (Clear) Urine pH 5.5 (5.0-9.0) Urine Specific [place] 1.017 (1.001-1.035) Urine Protein Trace (Negative) H Urine Ketones Negative (Negative) Urine Blood 2+ /uL (Negative) H Urine Nitrite Negative (Negative) Urine Bilirubin Negative (Negative) Urine Urobilinogen Normal mg/dL (Negative) Urine Leukocyte Esterase Negative /uL (Negative) Urine RBC 80 /hpf (0 - 3) Urine Microscopic WBC 3 /HPF (0-3) Urine Squamous Epithelial Cells Few /hpf (<5) Urine Bacteria None seen /hpf (None Seen) Urine Hyaline Casts Few /lpf (0 - 2) Urine Mucus Few (None Seen) Urine Glucose Normal mg/dL (Normal) Labs and/or images reviewed: Labs reviewed by me, Image(s) reviewed by me Assessment/Plan Assessment/Plan Acute Abdominal pain Diarrhea enterocolitis: Rocephin Flagyl Diastolic heart failure Coronary artery disease, status post CABG : Cardiology consult by Dr. Escobar appreciated Valvular heart disease, status post aortic valve replacement Persistent AFib Sick sinus syndrome, status post pacemaker implantation Pulmonary fibrosis/advanced COPD Peripheral artery disease Carotid artery stenosis Dementia Bladder Calculi and diverticuli: Urology consult for Dr. Go Poor hearing Hypertension Hyperlipidemia Proctitis/ileus/enteritis Daughter Megan [phone] at bed side Plan discussed with: Patient Date of Service: May 23, 2024 Billing Provider: JAVON GUTIERREZ MD Common Visit Codes: [id number] CARE 30-74 MIN JAVON GUTIERREZ MD May 23, 2024 12:54
[2024-05-23] MEDS: LACTATED RINGER'S 1,000 ML IV ONE (13:23)
--- NOTE | 2024-05-23 14:54 | DVHINCON2 ---
Date of service: May 23, 2024 Referring Physician Michael Escobar Reason for Consultation Diarrhoea History of Present Illness The patient is a 88-year-old male hard of hearing with past medical history of CHF, dementia, Coronary artery disease, and thyroid disease who presented to [facility] ED with complaint of abdominal pain and diarrhea for the past 2 days. Abdomen/pelvis CT revealing enlarged prostate with impression on the bladder base, perirectal inflammatory changes, possible proctitis, nonspecific nondilated fluid-filled small bowel loops; findings may be seen with ileus or enteritis, no small bowel obstruction. Chest x-ray revealing cardiomegaly and pulmonary edema. Patient was started on IV antibiotic regimen Rocephin, given IV Lasix Was seen at bedside in 279 a. He was having some difficulty swallowing his pills because of coughing. Patient has had three bowel movements today but no bleeding was reported Past Medical History Past Medical History CAD, CHF, Dementia, Thyroid Past Surgical History Past Surgical History Pacemaker Family History: FH: cancer G8 MOTHER Allergies: Coded Allergies: Fentanyl (Verified Allergy, Severe, 04/20/18) Midazolam (Verified Allergy, Severe, 04/20/18) Acetaminophen (Verified Allergy, Unknown, 04/20/18) Albuterol (Verified Allergy, Unknown, 04/20/18) Home Meds Reported Medications Tamsulosin Hcl (Tamsulosin Hcl) 0.4 Mg Cap, 0.4 MG PO QPM for 30 Days, MG 04/20/18 Famotidine (Famotidine) 20 Mg Tab, 20 MG PO BID for 30 Days, MG 04/20/18 Potassium Chloride (Klor-Con M20) 20 Meq Tab, 20 MEQ PO BID, TAB 04/20/18 Furosemide (Lasix) 40 Mg Tab, 40 MG PO BID, TAB 04/20/18 Aspirin (Aspir-Low) 81 Mg Tab, 81 MG PO DAILY for 30 Days, MG 04/20/18 Clopidogrel Bisulfate (Plavix) 75 Mg Tab, 1 TAB PO DAILY, #90 TAB 1 Refill 04/20/18 Current Medications Current Medications Medications (Trade) Dose Ordered Sig/Taryn Route PRN Reason Start Time Stop Time Status Last Admin Aspirin 81 mg DAILY PO 05/23/24 10:00 05/23/24 09:57 Ceftriaxone Sodium 50 ml @ 100 mls/hr DAILY@09 IV 05/24/24 09:00 Metronidazole 100 ml @ 100 mls/hr Q8HR IV 05/23/24 06:00 05/23/24 13:23 Furosemide (Lasix Injection) 20 mg DAILY IV 05/23/24 10:00 05/23/24 09:57 Sodium Chloride (Saline Lock Ns) 10 ml Q8HR IV 05/23/24 06:00 05/23/24 14:37 Ondansetron HCl (Zofran) 4 mg Q4HP PRN IV NAUSEA / VOMITING 05/22/24 23:45 Docusate Sodium (Colace Capsule) 100 mg BIDPRN PRN PO FOR CONSTIPATION 05/22/24 23:45 Tamsulosin HCl (Flomax) 0.4 mg QPM PO 05/23/24 18:00 Clopidogrel Bisulfate (Plavix) 75 mg DAILY PO 05/23/24 10:00 05/23/24 09:56 Famotidine (Pepcid Injection) 20 mg DAILY IV 05/23/24 10:00 05/23/24 09:57 Nitroglycerin (Ntrostat Sublingual) 0.4 mg Q5MINP PRN SL FOR CHEST PAIN 05/23/24 02:00 Morphine Sulfate 2 mg Q30M PRN IV FOR CHEST PAIN 05/23/24 02:00 Apixaban (Eliquis) 2.5 mg BID PO 05/23/24 10:00 05/23/24 09:56 Vital Signs Vital Signs Date Time Temp Pulse Resp B/P (MAP) Pulse Ox O2 Delivery O2 Flow Rate FiO2 05/23/24 12:18 96.3 78 19 133/51 (78) 96 96.3 05/23/24 08:00 Nasal Cannula* 2 28 Physical Exam General Appeara: Cachetic, Thin Eye Exam: bilateral eye PERRL Pulmonary/Respiratory: Rales, Rhonci Cardiovascular/Chest: Systolic murmur Abdominal Exam: Normal bowel sounds, Soft Labs/Diagnostic Data Labs Test 05/23/24 09:58 05/23/24 01:05 05/22/24 23:50 05/22/24 18:44 Range/Units White Blood Count 3.4 #L 4.4-10.8 10^3/uL Red Blood Count 4.14 L 4.5-5.90 10^6/uL Hemoglobin 14.4 13.5-17.5 g/dL Hematocrit 44.2 41.0-53.0 % Mean Corpuscular Volume 106.8 H 80.0-100.0 fL Mean Corpuscular Hemoglobin 34.8 H 28.0-32.0 pg Mean Corpuscular Hemoglobin Concent 32.6 32.0-36.0 g/dL Red Cell Distribution Width 15.2 H 11.8-14.3 % Platelet Count 142 140-450 10^3/uL Mean Platelet Volume 10.6 6.9-10.8 fL Neutrophils (%) (Auto) 69.2 37.0-80.0 % Lymphocytes (%) (Auto) 12.1 10.0-50.0 % Monocytes (%) (Auto) 14.7 H 0.0-12.0 % Eosinophils (%) (Auto) 3.3 0.0-7.0 % Basophils (%) (Auto) 0.7 0.0-2.0 % Neutrophils # (Auto) 2.4 1.6-8.6 10 ^3/uL Lymphocytes # (Auto) 0.4 0.4-5.4 10 ^3/uL Monocytes # (Auto) 0.5 0-1.3 10 ^3/uL Eosinophils # (Auto) 0.1 0-0.8 10 ^3/uL Basophils # (Auto) 0 0-0.2 10 ^3/uL Nucleated Red Blood Cells 0.1 % D-Dimer, Quantitative 2.85 H 0.0-0.49 mg/L FEU Sodium Level 141 136-145 mmol/L Potassium Level 3.0 L 3.5-5.1 mmol/L Chloride Level 105 98-107 mmol/L Carbon Dioxide Level 26 20-31 mmol/L Anion Gap 10 5-15 Blood Urea Nitrogen 11 9-23 mg/dL Creatinine 0.85 0.700-1.30 mg/dL Glomerular Filtration Rate Calc 84 >90 mL/min BUN/Creatinine Ratio 12.9 10.0-20.0 Serum Glucose 88 74-106 mg/dL Calcium Level 9.0 8.7-10.4 mg/dL Total Bilirubin 0.9 0.2-1.0 mg/dL Aspartate Amino Transferase (AST) 13 13-40 U/L Alanine Aminotransferase (ALT) 12 7-40 U/L Alkaline Phosphatase 65 46-116 U/L Total Protein 5.8 5.7-8.2 g/dL Albumin 3.3 3.2-4.8 g/dL Troponin I High Sensitivity 87 *H </=54 ng/L B-Type Natriuretic Peptide 1931.31 0-100 pg/mL Urine Color Yellow Yellow Urine Clarity Clear Clear Urine pH 5.5 5.0-9.0 Urine Specific [place] 1.017 1.001-1.035 Urine Protein Trace H Negative Urine Ketones Negative Negative Urine Blood 2+ H Negative /uL Urine Nitrite Negative Negative Urine Bilirubin Negative Negative Urine Urobilinogen Normal Negative mg/dL Urine Leukocyte Esterase Negative Negative /uL Urine RBC 80 0 - 3 /hpf Urine Microscopic WBC 3 0-3 /HPF Urine Squamous Epithelial Cells Few <5 /hpf Urine Bacteria None seen None Seen /hpf Urine Hyaline Casts Few 0 - 2 /lpf Urine Mucus Few None Seen Urine Glucose Normal Normal mg/dL Test 05/22/24 18:08 Range/Units Lactic Acid Level 1.5 0.4-2.0 mmol/L CXR IMPRESSION: Cardiomegaly and pulmonary edema. CT SCAN ABD PELVIS IMPRESSION: 1. Motion limited study. 2. Perirectal inflammatory changes, possible proctitis. 3. Enlarged prostate with impression on the bladder base. 4. Multiple bladder diverticula and bladder calculi. 5. Partially visualized small right and moderate left pleural effusions with overlying atelectasis. 6. Partially visualized cardiomegaly and additional findings as detailed above. 7. Nonspecific nondilated fluid-filled small bowel loops. Findings may be seen with ileus or enteritis in the appropriate clinical setting. No small bowel obstruction. 8. Left inguinal hernia contains a loop of sigmoid colon without evidence for o bstruction. Problems(with codes): (1) Hypokalemia (2) Fluid overload (3) Hematuria (4) Acute exacerbation of congestive heart failure (5) Generalized weakness (6) Proctitis (7) Macrocytosis (8) Diarrhea Plan/Recommendation PLAN Patient's diarrhea could likely be related to fluid overload He also has hematuria possibly related to bladder calculi and cystitis We will check stool for occult blood, WBC I will check stool for C diff then bacterial culture Lomotil as needed for diarrhea Continue diuresis I will follow up patient with you Plan discussed with: Patient, Other (Nurse) MAGDA KENDRICK MD May 23, 2024 14:54
--- NOTE | 2024-05-23 16:12 | DVHSR ---
APPROVED REPORT EXAM: Two-dimensional and M-mode echocardiogram with Doppler and color Doppler. Blood Pressure: 125/53 mmHg INDICATION CHF exacerbation, unspecified Surgery/Intervention Valve Replacement: Type: TAVR RISK FACTORS Height: 66, Weight: 165 DIMENSIONS LVDd5.0 (3.8-5.7cm)LA (2D)4.5 (1.9-4.0cm)Aortic Root (2.0-3.7cm) LVDs4.0 (2.5-4.0cm)LA (MM) (1.9-4.0cm)Aortic Cusp Exc (1.5-2.0cm) EF (%) 40.0 (55-70%)Rt. Atrium5.2 (1.9-4.0cm)Asc. Aorta cm IVSd1.2 (0.7-1.1cm)RV (D) (1.8-2.4cm) PWd1.4 (0.7-1.1cm) Mitral Valve MitralMitral Stenosis E wave1.29m/sMV Mean GR.mmHg A wavem/sMV Peak GR.47mmHg E/A ratio0.02D MVAcm2 Aortic Valve Aortic ValveAortic Stenosis V11.05m/Nathan Mean GR.13mmHg V22.43m/Nathan Peak GR.24mmHg LVOT Diameter2.0 (1.8-2.4cm)Doppler AVA1.36cm2 AI P 1/2 Rhvp102.12ms Tricuspid Valve TR Velocity3.31m/s [id number] Other Information Technically limited study due to patient laying flat on his back during exam. Conclusion Sinus rhythm. Concentric LVH. Biatrial enlargement. Moderate mitral annular calcification. Immobility of the posterior mitral leaflet. Diminished excur juli of the leaflets secondary to poor cardiac output. Aortic valve appears to be sclerotic. Possib le TAVR valve. Diminished excursion of the leaflets. Moderate calcification noted. The tricuspid a nd pulmonic normal. Left ventricular function is diminished. EF is approximately 20% with severe anterior apical hypokin esis. [id number] hypokinesis of the inferior lateral wall. There is a peak gradient of24 mmHg across the aortic valve with a mean gradient of 13. Aortic valve area at 1.2 cm2. Moderate tricuspid regurgitation. Right ventricular systolic pressure of55 mmHg. No pericardial effusion masses or vegetations discernible.
[2024-05-23 16:26] LABS: INR 1.32 (0.9-1.15); Prothrombin Time 13.6 sec (9.3-11.8)
[2024-05-23] MEDS ORDERED: METO25TA93 PO (16:36)
[2024-05-23] MEDS ORDERED: FURO20TA3 PO (16:49)
[2024-05-23] MEDS ORDERED: POTA-215 PO (16:49)
[2024-05-23] MEDS ORDERED: APIX2.5T PO (16:49)
[2024-05-23] MEDS ORDERED: LEVO100T8 PO (16:49)
[2024-05-23] MEDS ORDERED: FINA5TAB4 PO (16:49)
[2024-05-23] MEDS ORDERED: TAMS1CAP25 PO (16:49)
--- NOTE | 2024-05-23 16:56 | DVH ---
Bilateral lower extremity venous duplex Clinical History: rule out DVT Comparison: None Technique: Duplex Doppler evaluation of the deep venous systems of both lower extremities from the common femora l veins to the popliteal veins including color Doppler and spectral/pulsed waveform analysis was perf ormed. Findings: RIGHT SIDE: The common femoral vein demonstrates appropriate compressibility and waveform variability. There is compressibility/patency of the great saphenous vein at the proximal thigh. The femoral vein demonstrates appropriate compressibility and waveform variability. The deep femoral vein demonstrates appropriate compressibility and waveform variability. The popliteal vein demonstrates appropriate compressibility and waveform variability. There is normal compressibility at the tibioperoneal trunk. LEFT SIDE: The common femoral vein demonstrates appropriate compressibility and waveform variability. There is compressibility/patency of the great saphenous vein at the proximal thigh. The femoral vein demonstrates appropriate compressibility and waveform variability. The deep femoral vein demonstrates appropriate compressibility and waveform variability. The popliteal vein demonstrates appropriate compressibility and waveform variability. There is normal compressibility at the tibioperoneal trunk. Impression: 1. No right or left femoropopliteal venous thrombosis. HS:Y
--- NOTE | 2024-05-23 17:09 | DVHINCON2 ---
Date of service: May 23, 2024 Referring Physician Hospitalist Reason for Consultation bladder diverticulum with stones History of Present Illness History Source: Patient, Family, RN Notes, MD Notes, Old Records Exam Limitations: No limitations HPI 88 yo male known to urology service for BPH s/p TURP 2018. Presents with c/o diarrhea and intermittent left lower quadrant pain. 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 He lives with family and was doing pretty well until a a week ago when he began to have GI problems and increasing weakness. He uses commode at home and denies difficulty voiding. He is incontinent typically. He has a aguilar in place with clear yellow urine. Home Meds Reported Medications Potassium Chloride (Klor-Con M10) 10 Meq Tab, 10 MEQ PO DAILY, TAB 05/23/24 Furosemide (Furosemide) 20 Mg Tab, 20 MG PO DAILY for 30 Days, MG 05/23/24 Evolocumab (Repatha) 140 Mg/Ml Inj, 140 MG SC, INJ 05/23/24 Tamsulosin HCl (Tamsulosin Hydrochloride) 0.4 Mg Cap, 0.4 MG PO, CAP 05/23/24 Finasteride (Finasteride) 5 Mg Tab, 5 MG PO DAILY for 30 Days, MG 05/23/24 Apixaban Base (ELIQUIS) 2.5 Mg Tab, 2.5 MG PO BID, TAB 05/23/24 Levothyroxine Sodium (Levothyroxine Sodium) 100 Mcg Tab, 100 MCG PO QAM for 30 Days, MCG 05/23/24 Metoprolol Succinate (Metoprolol Succinate Er) 25 Mg Tab, 25 MG PO DAILY for 30 Days, MG 05/23/24 Tamsulosin Hcl (Tamsulosin Hcl) 0.4 Mg Cap, 0.4 MG PO QPM for 30 Days, MG 04/20/18 Famotidine (Famotidine) 20 Mg Tab, 20 MG PO BID for 30 Days, MG 04/20/18 Potassium Chloride (Klor-Con M20) 20 Meq Tab, 20 MEQ PO BID, TAB 04/20/18 Furosemide (Lasix) 40 Mg Tab, 40 MG PO BID, TAB 04/20/18 Aspirin (Aspir-Low) 81 Mg Tab, 81 MG PO DAILY for 30 Days, MG 04/20/18 Clopidogrel Bisulfate (Plavix) 75 Mg Tab, 1 TAB PO DAILY, #90 TAB 1 Refill 04/20/18 Past Medical History Cardiac: CAD, HTN Others Past medical history includes coronary artery disease and status post CABG (1991), valvular heart disease and status post aortic valve replacement, persistent atrial fibrillation (on Eliquis as outpatient), sick sinus syndrome and status post pacemaker ([employer]) placement, 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 Past Surgical History: CABG, TURP, Other Patient Family History: FH: cancer G8 MOTHER Smoker: No Hx (Negative) Alocohol: None Drugs: None Domestic Violence: Neg Review of Systems Gastrointestinal: Abdominal Pain, Diarrhea H&P Exam Vital Signs Vital Signs Date Time Temp Pulse Resp B/P (MAP) Pulse Ox O2 Delivery O2 Flow Rate FiO2 05/23/24 12:18 96.3 78 19 133/51 (78) 96 96.3 05/23/24 08:00 Nasal Cannula* 2 28 General Appeara: Well developed, Well nourished, Normal Appearance Pulmonary/Respiratory: Normal inspection, Normal breath sounds, Chest non- tender, Lungs clear Cardiovascular/Chest: Normal inspection, Edema, Regular rate, Normal Rhythm Abdominal Exam: Normal bowel sounds, Soft, No hepatospenomegaly, No masses Abdominal Pain Onset Location: LLQ Rectal Exam: Deferred Male Genital Exam: Normal genitalia Neuro/Mental St: Alert, Oriented Appearance: Appropriate appearance, Appropriate insight Eye contact/ Speech: Cooperative, Good eye contact, Normal speech Skin Exam: Pallor Labs/Xrays [place] [address] Ph: [phone] DIAGNOSTIC IMAGING Diagnostic Imaging Report : [id number] Signed PATIENT: TERESA PENNINGTON ACCT: [id number] UNIT: [id number] : 1935 LOC: ER ROOM / BED: / AGE / SEX: 88 / M ADM STATUS: REG ER SERVICE [id number] ORDERING PHYSICIAN: UMAIR CAST MD PROCEDURE(s): ABPL - CT AB PEL WO CON-NO ORAL OR IV REASON: diarrhea llq pain ORDER NUMBER(s): [id number], ACCESSION NUMBER(s): [id number] CLINICAL INFORMATION: 88 years old, Male; diarrhea. Left lower quadrant pain. TECHNIQUE: Axial CT images of the abdomen and pelvis were obtained without IV contrast. Coronal and sagittal reformatted images were obtained, reviewed, and stored. Evaluation of the parenchymal organs is limited without IV contrast. Evaluation of the bowel and mesentery is limited without oral contrast. All CT scans at this medical facility are performed using dose modulation techniques as appropriate to a performed exam including the following: Automated exposure control was utilized; adjustment of the MA and/or KV according to patient size; and use of iterative reconstruction technique. CTDIvol = 6.77 mGy DLP = 354.5 mGy-cm COMPARISON: None FINDINGS: Limited examination due to motion artifact. Lung bases: Partially visualized small right and moderate left pleural effusions with overlying atelectasis fibrotic changes in the lung bases moderate to marked cardiomegaly. Post surgical changes of prior transcatheter aortic valve replacement. Dense mitral annular calcification pacemaker leads extend to the right atrium and right ventricle. Liver: Grossly unremarkable given the limitations of the exam. Biliary: No calcified gallstones visualized. Spleen: Unremarkable. Pancreas: Atrophic pancreas, not well visualized. Adrenal glands: Partially obscured by motion artifact. Kidneys: No hydronephrosis. Calcifications at the renal rolo bilaterally, appear to be arterial calcifications. Aorta/Vascular: Dense calcification. No abdominal aortic aneurysm. Retroperitoneum: No mass or lymphadenopathy. Bowel/mesentery: Nonspecific nondilated fluid-filled small bowel loops. Appendix is not visualized. There is mild stranding adjacent to the rectum, possible proctitis. Pelvic organs: Enlarged prostate with impression on the bladder base. Bladder: There are multiple bladder diverticula. There are calculi within the posterior bladder and within the left posterior bladder diverticulum. Abdominal wall: Diffuse body wall edema / anasarca. Left inguinal hernia contains a loop of sigmoid colon without evidence of obstruction. Bones: No acute fracture or suspicious intraosseous lesion. Chronic appearing deformity of the L5 vertebral body with up to 20% loss of height. IMPRESSION: 1. Motion limited study. 2. Perirectal inflammatory changes, possible proctitis. 3. Enlarged prostate with impression on the bladder base. 4. Multiple bladder diverticula and bladder calculi. 5. Partially visualized small right and moderate left pleural effusions with ove rlying atelectasis. 6. Partially visualized cardiomegaly and additional findings as detailed above. 7. Nonspecific nondilated fluid-filled small bowel loops. Findings may be seen with ileus or enteritis in the appropriate clinical setting. No small bowel obstruction. 8. Left inguinal hernia contains a loop of sigmoid colon without evidence for obstruction. ATED BY: TIGRE TRAN DO DICTATED DATE/TIME: 05/22/241838 SIGNED BY: TIGRE TRAN DO SIGNED DATE/TIME: 05/22/241838 CC: Labs Test 05/23/24 15:58 05/23/24 09:58 05/23/24 09:00 05/23/24 01:05 Range/Units Prothrombin Time 13.6 H 9.3-11.8 sec Prothrombin Time INR 1.32 H 0.9-1.15 White Blood Count 3.4 #L 4.4-10.8 10^3/uL Red Blood Count 4.14 L 4.5-5.90 10^6/uL Hemoglobin 14.4 13.5-17.5 g/dL Hematocrit 44.2 41.0-53.0 % Mean Corpuscular Volume 106.8 H 80.0-100.0 fL Mean Corpuscular Hemoglobin 34.8 H 28.0-32.0 pg Mean Corpuscular Hemoglobin Concent 32.6 32.0-36.0 g/dL Red Cell Distribution Width 15.2 H 11.8-14.3 % Platelet Count 142 140-450 10^3/uL Mean Platelet Volume 10.6 6.9-10.8 fL Neutrophils (%) (Auto) 69.2 37.0-80.0 % Lymphocytes (%) (Auto) 12.1 10.0-50.0 % Monocytes (%) (Auto) 14.7 H 0.0-12.0 % Eosinophils (%) (Auto) 3.3 0.0-7.0 % Basophils (%) (Auto) 0.7 0.0-2.0 % Neutrophils # (Auto) 2.4 1.6-8.6 10 ^3/uL Lymphocytes # (Auto) 0.4 0.4-5.4 10 ^3/uL Monocytes # (Auto) 0.5 0-1.3 10 ^3/uL Eosinophils # (Auto) 0.1 0-0.8 10 ^3/uL Basophils # (Auto) 0 0-0.2 10 ^3/uL Nucleated Red Blood Cells 0.1 % D-Dimer, Quantitative 2.85 H 0.0-0.49 mg/L FEU Sodium Level 141 136-145 mmol/L Potassium Level 3.0 L 3.5-5.1 mmol/L Chloride Level 105 98-107 mmol/L Carbon Dioxide Level 26 20-31 mmol/L Anion Gap 10 5-15 Blood Urea Nitrogen 11 9-23 mg/dL Creatinine 0.85 0.700-1.30 mg/dL Glomerular Filtration Rate Calc 84 >90 mL/min BUN/Creatinine Ratio 12.9 10.0-20.0 Serum Glucose 88 74-106 mg/dL Calcium Level 9.0 8.7-10.4 mg/dL Total Bilirubin 0.9 0.2-1.0 mg/dL Aspartate Amino Transferase (AST) 13 13-40 U/L Alanine Aminotransferase (ALT) 12 7-40 U/L Alkaline Phosphatase 65 46-116 U/L Total Protein 5.8 5.7-8.2 g/dL Albumin 3.3 3.2-4.8 g/dL Troponin I High Sensitivity 87 *H </=54 ng/L Test 05/22/24 23:50 05/22/24 18:44 05/22/24 18:08 Range/Units B-Type Natriuretic Peptide 1931.31 0-100 pg/mL Urine Color Yellow Yellow Urine Clarity Clear Clear Urine pH 5.5 5.0-9.0 Urine Specific [place] 1.017 1.001-1.035 Urine Protein Trace H Negative Urine Ketones Negative Negative Urine Blood 2+ H Negative /uL Urine Nitrite Negative Negative Urine Bilirubin Negative Negative Urine Urobilinogen Normal Negative mg/dL Urine Leukocyte Esterase Negative Negative /uL Urine RBC 80 0 - 3 /hpf Urine Microscopic WBC 3 0-3 /HPF Urine Squamous Epithelial Cells Few <5 /hpf Urine Bacteria None seen None Seen /hpf Urine Hyaline Casts Few 0 - 2 /lpf Urine Mucus Few None Seen Urine Glucose Normal Normal mg/dL Lactic Acid Level 1.5 0.4-2.0 mmol/L Assessment/Plan Problem List: (1) Bladder diverticulum (2) Bladder calculi (3) BPH loc w urin obs/LUTS (4) Acute abdominal pain (5) Elevated troponin (6) Enteritis (7) Proctitis Plan no acute intervention indicated at this time pt would need to be off of anticoagulation for at least 5 days prior. keep aguilar for now medical management Plan discussed with: Patient, Daughter, Other ABDI ROSAS NP May 23, 2024 17:09
[2024-05-23] MEDS ORDERED: DIPHENOXYLATE W/ATROPINE 2.5 MG TAB PO ONE (17:15)
[2024-05-23] MEDS: TAMSULOSIN HYDROCHLORIDE 0.4 MG CAP PO SCH (18:00)
[2024-05-24] VITALS (7 sets, daily range): BP systolic 106–129; BP diastolic 41–56; PULSE 63–75; RESP 17–19; TEMP 97.2–98.2; O2SAT 96–100
--- NOTE | 2024-05-24 08:05 | DVHPN2 ---
Progress Note - Dictate Date Seen: May 24, 2024 Medical Necessity Reason Pt with a Central, PICC or Fol: No vital signs Vital Sign Date Time Temp Pulse Resp B/P (MAP) Pulse Ox O2 Delivery O2 Flow Rate FiO2 05/24/24 05:00 97.6 67 19 114/52 (72) 99 97.6 05/23/24 20:00 Nasal Cannula* 2 28 Total Intake and Output 05/23/24 05/23/24 05/24/24 15:00 23:00 07:00 Intake Total 100 ml 1300 ml 300 ml Output Total 700 ml 250 ml Balance 100 ml 600 ml 50 ml medications Current Medications Medications Dose Ordered Sig/Taryn Route Start Time Stop Time Status Last Admin Dose Admin Aspirin 81 mg DAILY PO 05/23/24 10:00 05/23/24 09:57 81 MG Ceftriaxone Sodium 50 ml @ 100 mls/hr DAILY@09 IV 05/24/24 09:00 Metronidazole 100 ml @ 100 mls/hr Q8HR IV 05/23/24 06:00 05/24/24 05:17 100 MLS/HR Furosemide 20 mg DAILY IV 05/23/24 10:00 05/23/24 09:57 20 MG Sodium Chloride 10 ml Q8HR IV 05/23/24 06:00 05/24/24 05:17 10 ML Ondansetron HCl 4 mg Q4HP PRN IV 05/22/24 23:45 Tamsulosin HCl 0.4 mg QPM PO 05/23/24 18:00 Clopidogrel Bisulfate 75 mg DAILY PO 05/23/24 10:00 05/23/24 09:56 75 MG Famotidine 20 mg DAILY IV 05/23/24 10:00 05/23/24 09:57 20 MG Nitroglycerin 0.4 mg Q5MINP PRN SL 05/23/24 02:00 Morphine Sulfate 2 mg Q30M PRN IV 05/23/24 02:00 Apixaban 2.5 mg BID PO 05/23/24 10:00 05/23/24 20:49 2.5 MG Metronidazole 100 ml @ 100 mls/hr Q8HR IV 05/23/24 22:00 laboratory and microbiology Laboratory Tests 05/23/24 09:58 Test 05/23/24 09:58 Range/Units Serum Glucose 88 74-106 mg/dL Assessment/Plan Patient is a 88-year-old gentleman who presented to the hospital with days of abdominal pain and diarrhea. He did receive some course of antibiotics as outpatient recently. Patient is known to our practice from outside and before. Cardiology is involved for cardiac aspects of care. Patient does have history of coronary artery disease and has had CABG and aortic valve replacement before. Does have pacemaker and does have persistent atrial fibrillation. His history also includes advanced pulmonary fibrosis on home oxygen. Elderly gentleman with poor functional capacity and frail. No JVD. Mucosa is pink and wet. No carotid bruit. Lungs reveal scattered rhonchi and crackles. Cardiac: Regular, no thrill/gallop. Systolic murmur 3/6 in the apex is heard. Abdomen is soft. Bowel sound is positive. There is no peripheral edema. Dorsalis pedis is 1+ bilateral. 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 Creatinine: 0.8 - 0.85 Potassium: 4.0 - 3.0 BNP: 1583.60 - 1931.31 Troponin (high sensitive): 74 - 73 - 79 - 87 - 87 D-dimer: 2.85 Chest x-ray reported: Lines and Tubes: Dual-lead pacemaker overlying left chest wall. Lungs: Pulmonary edema. Pleura: Probable small bilateral pleural effusions. No pneumothorax. Cardiomediastinal contours: Moderate cardiomegaly. Bones: Unremarkable IMPRESSION: Cardiomegaly and pulmonary edema. CT of the abdomen and pelvis reported: IMPRESSION: 1. Motion limited study. 2. Perirectal inflammatory changes, possible proctitis. 3. Enlarged prostate with impression on the bladder base. 4. Multiple bladder diverticula and bladder calculi. 5. Partially visualized small right and moderate left pleural effusions with overlying atelectasis. 6. Partially visualized cardiomegaly and additional findings as detailed above. 7. Nonspecific nondilated fluid-filled small bowel loops. Findings may be seen with ileus or enteritis in the appropriate clinical setting. No small bowel obstruction. 8. Left inguinal hernia contains a loop of sigmoid colon without evidence for obstruction. Venous duplex of lower ext revealed: Impression: 1. No right or left femoropopliteal venous thrombosis. EKG revealed baseline atrial fibrillation with paced ventricular rhythm Echocardiogram reported: Sinus rhythm. Concentric LVH. Biatrial enlargement. Moderate mitral annular calcification. Immobility of the posterior mitral leaflet. Diminished excursion of the leaflets secondary to poor cardiac output. Aortic valve appears to be sclerotic. Possible TAVR valve. Diminished excursion of the leaflets. Moderate calcification noted. The tricuspid and pulmonic normal. Left ventricular function is diminished. EF is approximately 20% with severe anterior apical hypokinesis. [id number] hypokinesis of the inferior lateral wall. There is a peak gradient of24 mmHg across the aortic valve with a mean gradient of 13. Aortic valve area at 1.2 cm2. Moderate tricuspid regurgitation. Right ventricular systolic pressure of55 mmHg. No pericardial effusion masses or vegetations discernible. Patient is a 88-year-old gentleman who does have dementia and poor hearing and presented with abdominal pain and diarrhea. Has been having diarrhea for few days. There is question about weight loss. Completed some course of antibiotics recently. Comorbidities includes coronary artery disease/atrial fibrillation/peripheral artery disease/carotid artery stenosis/dementia/poor functional capacity. Troponin was minimally elevated and flat. Presentation is not considered acute coronary syndrome Increased BNP points toward component of heart failure. Echo revealed systolic heart failure which is new finding for patient. As patient with new systolic heart failure, ischemic work up / LHC can be justified. Will wait until stability and resolution of diarrhea before LHC. Abdominal pain Diarrhea Diastolic heart failure Coronary artery disease, status post CABG Valvular heart disease, status post aortic valve replacement Persistent AFib Sick sinus syndrome, status post pacemaker implantation Pulmonary fibrosis/advanced COPD Peripheral artery disease Carotid artery stenosis Dementia Poor hearing Hypertension Hyperlipidemia Proctitis/ileus/enteritis Systolic heart failure. Cardiac suggestion for management: Managed on telemetry Follow-up electrolytes and kidney function tests and correct abnormalities Request for interrogation of pacemaker ([employer]) Continuation of anticoagulation (on Eliquis: 2.5 mg b.i.d. as outpatient) is suggested GDMT for systolic heart failure. Add: Entresto/Coreg As patient with new systolic heart failure, ischemic work up / LHC can be justified. Will wait until stability and resolution of diarrhea before LHC CT angio of the chest Request for C diff Further evaluation and management depends on the above and clinical course A total of 55 minutes was spent reviewing the patient record, examining the patient, making a diagnostic and therapeutic plan, discussing this plan with medical personnel, following up on diagnostic studies and following the patient for clinical stability excluding any and all procedures. At least 50% of this time was spent in direct, [id number] contact. Thank you for allowing me to participate in this patient's care. Further recommendations will depend on patient's clinical course. Please do not hesitate to contact me if you have any questions or concerns. This medical document was created using electronic medical record system with [employer] computerized dictation system. Although this document has been carefully reviewed, there may still be some phonetic and typographical errors. These areas are purely typographical due to the imperfection of the software programs, and do not reflect any compromise in the patient's medical care. Plan discussed with: Other (nurse) CARLOS OGLESBY MD May 24, 2024 08:05
--- NOTE | 2024-05-24 10:53 | ECG ---
[facility] Test Date: 2024-05-22 Test Time: 17:12:11 Pat Name: TERESA PENNINGTON Department: ER Room: 0234T Gender: M Demographer: JENI : 1935 Requested By: UMAIR SANCHEZ Order Number: [id number] Reading MD: Miguel Catalan Measurements Intervals [place] Rate: 75 P: 0 IA: 0 QRS: 261 QRSD: 202 T: 76 QT: 490 QTc: 548 Interpretive Statements Afib/flutter and ventricular-paced rhythm No further analysis attempted due to paced rhythm Electronically Signed On 05-29-2024 16:58:23 PST by Miguel Catalan Please click the below link to view image of tracing.
[2024-05-24] MEDS: cefTRIAXone 1GM/50ML D5W 50 ML IV SCH (11:10)
[2024-05-24] MEDS: SACUBITRIL-VALSARTAN 24mg/26mg TAB PO SCH (11:10)
[2024-05-24] MEDS: CARVEDILOL 3.125 MG TAB PO SCH (11:11)
--- NOTE | 2024-05-24 11:19 | DVH ---
CTA Chest with intravenous contrast INDICATION: elevated d-dimer COMPARISON: None TECHNIQUE: Multidetector spiral CTA of the chest was performed of the chest with intravenous contrast . PULMONARY ANGIOGRAPHY PROTOCOL was utilized using a bolus-tracking technique centered on the main p ulmonary artery. Axial, coronal and sagittal multiplanar and MIP reformats were performed. CONTRAST: Type of contrast: Omni 350 Contrast injected: 100 ml Radiation dose : Chest: CTDI volume is 37 mGy. Dose-length product is 463 mGy*cm The dose indicators for CT are the volume computed Tomography (CT) dose Index (CTDIvol) and the dose Length product (DLP), and are measured in units of mGy and mGy-cm, respectively. These indicators are not patient dose, but values generated from the CT scanner acquisition factors. The report includes radiation exposure data for exposures received during this examination. Findings: Pulmonary artery: No large central pulmonary embolus. Questionable filling defect in the left lower lobe subsegmental b ranch could be artifact due to motion. Lower neck: Normal thyroid. Lungs: Patchy consolidation and septal thickening in both lungs. Bibasilar atelectasis and consolidat ion. Heart/Vascular Structures: Moderate cardiomegaly. No pericardial effusion. Endovascular aortic valve replacement. Lymph Nodes: Subcentimeter mediastinal lymph nodes noted. Pleura: Moderate to large bilateral pleural effusions. Musculoskeletal: Mild loss of vertebral body height midthoracic levels. Multilevel degenerative dise ase. Likely bone island in T1 vertebral body. Soft tissues: Normal. Upper abdomen: Limited portions of the upper abdomen are unremarkable. IMPRESSION: 1. No large central pulmonary embolism. Questionable small embolus in the left lower lobe segmental b ranch could be artifact. Attention on follow-up is recommended. 2. Moderate to large bilateral pleural effusions. Patchy consolidation and septal thickening in both lungs. Likely congestive failure or fluid overload with possible superimposed infectious / inflammat ory process. Clinical correlation and continued follow-up is recommended. HS:Y
--- NOTE | 2024-05-24 12:04 | DVHPN2 ---
Reviewed: Care Plan, H&P, Labs, Medications, Previous Orders, Radiology Changes from previous H/P or p: No Changes Eyes: No Pain, No Vision change, No Conjunctivae inflammation, No Eyelid inflammation, No Other, No Redness ENT: No Ear pain, No Ear discharge, No Nose pain, No Nose discharge, No Nose congestion, No Mouth pain, No Mouth swelling, No Throat pain, No Throat swelling, No Other Cardiovascular: No Chest Pain, No Palpitations, No Orthopnea, No Paroxysmal Noc. Dyspnea, No Edema, No Lt Headedness, No Other Respiratory: No Cough, No Dry; Shortness of breath; No SOB with excertion, No Wheezing, No Hemoptysis, No Pleuritic Pain, No Sputum, No Other Gastrointestinal: No Nausea, No Vomiting; Abdominal Pain, Diarrhea; No Constipation, No Melena, No Hematochezia, No Other Genitourinary: No Dysuria, No Frequency, No Incontinence, No Hematuria, No Retention, No Other Musculoskeletal: No other, No neck pain, No shoulder pain, No arm pain, No back pain, No hand pain, No leg pain, No foot pain Skin: No Rash, No Lesions, No Jaundice, No Bruising, No Other Objective Vitals Vital Signs Date Time Temp Pulse Resp B/P (MAP) Pulse Ox O2 Delivery O2 Flow Rate FiO2 05/24/24 11:11 75 121/52 05/24/24 08:42 97.4 18 99 97.4 05/23/24 20:00 Nasal Cannula* 2 28 Intake/Output Intake and Output 05/24/24 07:00 Intake Total 1700 ml Output Total 950 ml Balance 750 ml Intake Oral 600 ml IV Total 1100 ml Output Urine Total 950 ml # Bowel Movements 2 Medications Current Medications Medications Dose Ordered Sig/Taryn Route Start Time Stop Time Status Last Admin Dose Admin Ceftriaxone Sodium 50 ml @ 100 mls/hr DAILY@09 IV 05/24/24 09:00 05/24/24 11:10 100 MLS/HR Metronidazole 100 ml @ 100 mls/hr Q8HR IV 05/23/24 06:00 05/24/24 05:17 100 MLS/HR Furosemide 20 mg DAILY IV 05/23/24 10:00 05/24/24 11:11 20 MG Sodium Chloride 10 ml Q8HR IV 05/23/24 06:00 05/24/24 05:17 10 ML Ondansetron HCl 4 mg Q4HP PRN IV 05/22/24 23:45 Tamsulosin HCl 0.4 mg QPM PO 05/23/24 18:00 Famotidine 20 mg DAILY IV 05/23/24 10:00 05/24/24 11:12 20 MG Nitroglycerin 0.4 mg Q5MINP PRN SL 05/23/24 02:00 Morphine Sulfate 2 mg Q30M PRN IV 05/23/24 02:00 Apixaban 2.5 mg BID PO 05/23/24 10:00 05/24/24 11:10 2.5 MG Carvedilol 3.125 mg Q12HR PO 05/24/24 10:00 05/24/24 11:11 3.125 MG Sacubitril/ Valsartan 1 tab BID PO 05/24/24 10:00 05/24/24 11:10 1 TAB Laboratory Results Laboratory Tests 05/23/24 09:58 Coagulation Test 05/23/24 15:58 Prothrombin Time 13.6 sec (9.3-11.8) H Prothrombin Time INR 1.32 (0.9-1.15) H Urinalysis Test 05/22/24 18:44 Urine Color Yellow (Yellow) Urine Clarity Clear (Clear) Urine pH 5.5 (5.0-9.0) Urine Specific [place] 1.017 (1.001-1.035) Urine Protein Trace (Negative) H Urine Ketones Negative (Negative) Urine Blood 2+ /uL (Negative) H Urine Nitrite Negative (Negative) Urine Bilirubin Negative (Negative) Urine Urobilinogen Normal mg/dL (Negative) Urine Leukocyte Esterase Negative /uL (Negative) Urine RBC 80 /hpf (0 - 3) Urine Microscopic WBC 3 /HPF (0-3) Urine Squamous Epithelial Cells Few /hpf (<5) Urine Bacteria None seen /hpf (None Seen) Urine Hyaline Casts Few /lpf (0 - 2) Urine Mucus Few (None Seen) Urine Glucose Normal mg/dL (Normal) Microbiology Microbiology Date/Time Source Procedure Growth Status 05/23/24 09:00 Stool Stool Culture - Preliminary Resulted 05/23/24 09:00 Stool Shiga Toxin I & II Pending Resulted 05/23/24 09:00 Stool Clostridium difficile Toxin Assay Pending Resulted 05/22/24 18:14 Blood Blood Culture - Preliminary NO GROWTH AFTER 24 HOURS OF INCUBATION. Resulted Labs and/or images reviewed: Labs reviewed by me, Image(s) reviewed by me Assessment/Plan Assessment/Plan Acute Abdominal pain Diarrhea enterocolitis: Rocephin Flagyl Diastolic heart failure Coronary artery disease, status post CABG : Cardiology consult by Dr. Escobar appreciated Valvular heart disease, status post aortic valve replacement Persistent AFib Sick sinus syndrome, status post pacemaker implantation Pulmonary fibrosis/advanced COPD Peripheral artery disease Carotid artery stenosis Dementia Bladder Calculi and diverticuli: Urology consult for Dr. Go appreciated, advised conservative management Hearing impairment Hypertension Hyperlipidemia Proctitis/ileus/enteritis: C diff studies pending, GI consult by Dr. Hernandes appreciated Daughter Megan [phone] at bed side Plan discussed with: Patient My Orders Orders - JAVON GUTIERREZ MD Procedure Category Date Status Time * Urology Consult CONS 05/23/24 Transmitted 12:42 Blood Culture EVA 05/23/24 In Process 12:55 Date of Service: May 24, 2024 Billing Provider: JAVON GUTIERREZ MD Common Visit Codes: [id number] INP/OBS CARE(HIGH) JAVON GUTIERREZ MD May 24, 2024 12:04
[2024-05-24] MEDS: LOPERAMIDE HCL 2 MG CAP/TAB PO ONE (12:15)
[2024-05-24] MEDS: LOPERAMIDE HCL 2 MG CAP/TAB PO PRN (14:27)
--- NOTE | 2024-05-24 16:24 | DVHPN2 ---
Progress Note Date Seen: May 24, 2024 Resident Creating Document: NADEGE NEWTON RESIDENT Medical Necessity Reason Pt with a Central, PICC or Fol: No Subjective Review of Systems Patient seen and examined at bedside Patient continued to have loose stool At least 2-3 today Tolerating diet otherwise, no nausea or vomiting. No abdominal pain No any other symptoms Objective vital signs Vital Sign Date Time Temp Pulse Resp B/P (MAP) Pulse Ox O2 Delivery O2 Flow Rate FiO2 05/24/24 13:00 97.2 63 18 129/46 (73) 96 97.2 05/24/24 08:00 Nasal Cannula* 3 32 Total Intake and Output 05/23/24 05/23/24 05/24/24 15:00 23:00 07:00 Intake Total 100 ml 1300 ml 300 ml Output Total 700 ml 250 ml Balance 100 ml 600 ml 50 ml medications Current Medications Medications Dose Ordered Sig/Taryn Route Start Time Stop Time Status Last Admin Dose Admin Ceftriaxone Sodium 50 ml @ 100 mls/hr DAILY@09 IV 05/24/24 09:00 05/24/24 11:10 100 MLS/HR Metronidazole 100 ml @ 100 mls/hr Q8HR IV 05/23/24 06:00 05/24/24 14:27 100 MLS/HR Furosemide 20 mg DAILY IV 05/23/24 10:00 05/24/24 11:11 20 MG Sodium Chloride 10 ml Q8HR IV 05/23/24 06:00 05/24/24 14:27 10 ML Ondansetron HCl 4 mg Q4HP PRN IV 05/22/24 23:45 Tamsulosin HCl 0.4 mg QPM PO 05/23/24 18:00 Famotidine 20 mg DAILY IV 05/23/24 10:00 05/24/24 11:12 20 MG Nitroglycerin 0.4 mg Q5MINP PRN SL 05/23/24 02:00 Morphine Sulfate 2 mg Q30M PRN IV 05/23/24 02:00 Apixaban 2.5 mg BID PO 05/23/24 10:00 05/24/24 11:10 2.5 MG Carvedilol 3.125 mg Q12HR PO 05/24/24 10:00 05/24/24 11:11 3.125 MG Sacubitril/ Valsartan 1 tab BID PO 05/24/24 10:00 05/24/24 11:10 1 TAB Loperamide HCl 2 mg PRN PRN PO 05/24/24 12:15 05/24/24 14:27 2 MG Vancomycin HCl 125 mg QID PO 05/24/24 18:00 Examination General Appearance: Cooperative. Hard to hear. Cachectic, thin. Head Exam: Normal inspection Neck Exam: Normal inspection. Non-tender. Normal alignment Pulmonary/Respiratory: Chest non-tender. Clear bilateral breath sounds Cardiovascular/Chest: Regular rate and rhythm. No murmurs. No JVD. Peripheral Pulses: 2+ Radial (R). 2+ Radial (L). 2+ Pedal (R). 2+ Pedal (L) Abdominal Exam: Normal bowel sounds. Soft. Nontender. No hepatospenomegaly. No masses Ankle Exam: Negative ankle edema Lower extremities: Negative lower extremity edema laboratory and microbiology Laboratory Tests 05/23/24 09:58 Test 05/23/24 09:58 Range/Units Serum Glucose 88 74-106 mg/dL Microbiology Date/Time Source Procedure Growth Status 05/23/24 14:40 Blood Blood Culture - Preliminary NO GROWTH AFTER 24 HOURS OF INCUBATION. Resulted 05/23/24 09:00 Stool Stool Culture - Preliminary Resulted 05/23/24 09:00 Stool Shiga Toxin I & II Pending Resulted 05/23/24 09:00 Stool Clostridium difficile Toxin Assay - Final Resulted Problem List/Assessment/Plan Problem List/Assessment/Plan Acute C diff colitis Acute diarrhea Acute exacerbation of diastolic CHF Bilateral pleural effusion Dementia Hematuria with Bladder calculi with diverticula [id number] Plan/recommendation Dr Hernandes -Continue with vancomycin 120 mg p.o. q.i.d., Flagyl IV 500 mg Q eight. -C diff positive -pending stool occult and WBC -Lomotil as needed for diarrhea -continue management of heart failure as primary and Cardiology team -we will continue following this patient. Plan discussed with: Patient, Other (grand daughter) NADEGE NEWTON RESIDENT May 24, 2024 16:24
[2024-05-24] MEDS ORDERED: VANCOMYCIN HCL 125 MG CAP PO SCH (18:00)
[2024-05-24] MEDS: VANCOMYCIN HCL 125 MG CAP PO SCH (18:00)
[2024-05-25] VITALS (8 sets, daily range): BP systolic 91–114; BP diastolic 41–60; PULSE 65–80; RESP 17–19; TEMP 97.5–98.4; O2SAT 92–100
[2024-05-25] MEDS: ACETAMINOPHEN 325 MG TAB PO PRN (06:48)
--- NOTE | 2024-05-25 07:45 | DVHPN2 ---
Progress Note - Dictate Date Seen: May 25, 2024 Medical Necessity Reason Pt with a Central, PICC or Fol: No vital signs Vital Sign Date Time Temp Pulse Resp B/P (MAP) Pulse Ox O2 Delivery O2 Flow Rate FiO2 05/25/24 05:00 98.4 80 17 105/60 (75) 92 98.4 05/24/24 20:00 Nasal Cannula* 3 32 Total Intake and Output 05/24/24 05/24/24 05/25/24 15:00 23:00 07:00 Intake Total 454 ml 300 ml Output Total 750 ml 450 ml Balance -296 ml -150 ml medications Current Medications Medications Dose Ordered Sig/Taryn Route Start Time Stop Time Status Last Admin Dose Admin Metronidazole 100 ml @ 100 mls/hr Q8HR IV 05/23/24 06:00 05/25/24 05:59 100 MLS/HR Furosemide 20 mg DAILY IV 05/23/24 10:00 05/24/24 11:11 20 MG Sodium Chloride 10 ml Q8HR IV 05/23/24 06:00 05/25/24 06:49 10 ML Ondansetron HCl 4 mg Q4HP PRN IV 05/22/24 23:45 Tamsulosin HCl 0.4 mg QPM PO 05/23/24 18:00 05/24/24 17:59 0.4 MG Famotidine 20 mg DAILY IV 05/23/24 10:00 05/24/24 11:12 20 MG Nitroglycerin 0.4 mg Q5MINP PRN SL 05/23/24 02:00 Morphine Sulfate 2 mg Q30M PRN IV 05/23/24 02:00 Apixaban 2.5 mg BID PO 05/23/24 10:00 05/24/24 22:54 2.5 MG Carvedilol 3.125 mg Q12HR PO 05/24/24 10:00 05/24/24 23:00 3.125 MG Sacubitril/ Valsartan 1 tab BID PO 05/24/24 10:00 05/24/24 22:54 1 TAB Loperamide HCl 2 mg PRN PRN PO 05/24/24 12:15 05/24/24 14:27 2 MG Vancomycin HCl 125 mg QID PO 05/24/24 18:00 05/25/24 05:59 125 MG Acetaminophen 650 mg Q6HP PRN PO 05/25/24 06:45 05/25/24 06:48 650 MG laboratory and microbiology Laboratory Tests 05/23/24 09:58 Test 05/23/24 09:58 Range/Units Serum Glucose 88 74-106 mg/dL Assessment/Plan Patient is a 88-year-old gentleman who presented to the hospital with days of abdominal pain and diarrhea. He did receive some course of antibiotics as outpatient recently. Patient is known to our practice from outside and before. Cardiology is involved for cardiac aspects of care. Patient does have history of coronary artery disease and has had CABG and aortic valve replacement before. Does have pacemaker and does have persistent atrial fibrillation. His history also includes advanced pulmonary fibrosis on home oxygen. Elderly gentleman with poor functional capacity and frail. No JVD. Mucosa is pink and wet. No carotid bruit. Lungs reveal scattered rhonchi and crackles. Cardiac: Regular, no thrill/gallop. Systolic murmur 3/6 in the apex is heard. Abdomen is soft. Bowel sound is positive. There is no peripheral edema. Dorsalis pedis is 1+ bilateral. 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 Creatinine: 0.8 - 0.85 Potassium: 4.0 - 3.0 BNP: 1583.60 - 1931.31 Troponin (high sensitive): 74 - 73 - 79 - 87 - 87 D-dimer: 2.85 CDT DNA: Detected Chest x-ray reported: Lines and Tubes: Dual-lead pacemaker overlying left chest wall. Lungs: Pulmonary edema. Pleura: Probable small bilateral pleural effusions. No pneumothorax. Cardiomediastinal contours: Moderate cardiomegaly. Bones: Unremarkable IMPRESSION: Cardiomegaly and pulmonary edema. CT of the abdomen and pelvis reported: IMPRESSION: 1. Motion limited study. 2. Perirectal inflammatory changes, possible proctitis. 3. Enlarged prostate with impression on the bladder base. 4. Multiple bladder diverticula and bladder calculi. 5. Partially visualized small right and moderate left pleural effusions with overlying atelectasis. 6. Partially visualized cardiomegaly and additional findings as detailed above. 7. Nonspecific nondilated fluid-filled small bowel loops. Findings may be seen with ileus or enteritis in the appropriate clinical setting. No small bowel obstruction. 8. Left inguinal hernia contains a loop of sigmoid colon without evidence for obstruction. CTA of chest revealed: IMPRESSION: 1. No large central pulmonary embolism. Questionable small embolus in the left lower lobe segmental branch could be artifact. Attention on follow-up is recommended. 2. Moderate to large bilateral pleural effusions. Patchy consolidation and septal thickening in both lungs. Likely congestive failure or fluid overload with possible superimposed infectious / inflammatory process. Clinical correlation and continued follow-up is recommended. Venous duplex of lower ext revealed: Impression: 1. No right or left femoropopliteal venous thrombosis. EKG revealed baseline atrial fibrillation with paced ventricular rhythm Echocardiogram reported: Sinus rhythm. Concentric LVH. Biatrial enlargement. Moderate mitral annular calcification. Immobility of the posterior mitral leaflet. Diminished excursion of the leaflets secondary to poor cardiac output. Aortic valve appears to be sclerotic. Possible TAVR valve. Diminished excursion of the leaflets. Moderate calcification noted. The tricuspid and pulmonic normal. Left ventricular function is diminished. EF is approximately 20% with severe anterior apical hypokinesis. [id number] hypokinesis of the inferior lateral wall. There is a peak gradient of24 mmHg across the aortic valve with a mean gradient of 13. Aortic valve area at 1.2 cm2. Moderate tricuspid regurgitation. Right ventricular systolic pressure of55 mmHg. No pericardial effusion masses or vegetations discernible. Patient is a 88-year-old gentleman who does have dementia and poor hearing and presented with abdominal pain and diarrhea. Has been having diarrhea for few days. There is question about weight loss. Completed some course of antibiotics recently. Comorbidities includes coronary artery disease/atrial fibrillation/peripheral artery disease/carotid artery stenosis/dementia/poor functional capacity. Troponin was minimally elevated and flat. Presentation is not considered acute coronary syndrome Increased BNP points toward component of heart failure. Echo revealed systolic heart failure which is new finding for patient. As patient with new systolic heart failure, ischemic work up / LHC can be justified. Will wait until stability and resolution of diarrhea before LHC. Abdominal pain Diarrhea C-Diff colitis Diastolic heart failure Coronary artery disease, status post CABG Valvular heart disease, status post aortic valve replacement Persistent AFib Sick sinus syndrome, status post pacemaker implantation Pulmonary fibrosis/advanced COPD Peripheral artery disease Carotid artery stenosis Dementia Poor hearing Hypertension Hyperlipidemia Proctitis/ileus/enteritis Systolic heart failure. Pulmonary Emboli? (on Eliquis) Cardiac suggestion for management: Managed on telemetry Follow-up electrolytes and kidney function tests and correct abnormalities Request for interrogation of pacemaker ([facility]) Continuation of anticoagulation is suggested GDMT for systolic heart failure. On Entresto/Coreg As patient with new systolic heart failure, ischemic work up / LHC can be justified. Will wait until stability and resolution of diarrhea before LHC (possibly as outpatient) C-Diff management as per primary team Further evaluation and management depends on the above and clinical course A total of 55 minutes was spent reviewing the patient record, examining the patient, making a diagnostic and therapeutic plan, discussing this plan with medical personnel, following up on diagnostic studies and following the patient for clinical stability excluding any and all procedures. At least 50% of this time was spent in direct, [id number] contact. Thank you for allowing me to participate in this patient's care. Further recommendations will depend on patient's clinical course. Please do not hesitate to contact me if you have any questions or concerns. This medical document was created using electronic medical record system with [employer] computerized dictation system. Although this document has been carefully reviewed, there may still be some phonetic and typographical errors. These areas are purely typographical due to the imperfection of the software programs, and do not reflect any compromise in the patient's medical care. Plan discussed with: Patient, Other (nurse) CARLOS OGLESBY MD May 25, 2024 07:45
--- NOTE | 2024-05-25 10:31 | DVHPN2 ---
Reviewed: Care Plan, H&P, Labs, Medications, Previous Orders, Radiology Changes from previous H/P or p: No Changes Eyes: No Pain, No Vision change, No Conjunctivae inflammation, No Eyelid inflammation, No Other, No Redness ENT: No Ear pain, No Ear discharge, No Nose pain, No Nose discharge, No Nose congestion, No Mouth pain, No Mouth swelling, No Throat pain, No Throat swelling, No Other Cardiovascular: No Chest Pain, No Palpitations, No Orthopnea, No Paroxysmal Noc. Dyspnea, No Edema, No Lt Headedness, No Other Respiratory: No Cough, No Dry; Shortness of breath; No SOB with excertion, No Wheezing, No Hemoptysis, No Pleuritic Pain, No Sputum, No Other Gastrointestinal: No Nausea, No Vomiting; Abdominal Pain, Diarrhea; No Constipation, No Melena, No Hematochezia, No Other Genitourinary: No Dysuria, No Frequency, No Incontinence, No Hematuria, No Retention, No Other Musculoskeletal: No other, No neck pain, No shoulder pain, No arm pain, No back pain, No hand pain, No leg pain, No foot pain Skin: No Rash, No Lesions, No Jaundice, No Bruising, No Other Objective Vitals Vital Signs Date Time Temp Pulse Resp B/P (MAP) Pulse Ox O2 Delivery O2 Flow Rate FiO2 05/25/24 09:00 98.1 65 18 101/48 (65) 98 98.1 05/24/24 20:00 Nasal Cannula* 3 32 Intake/Output Intake and Output 05/25/24 07:00 Intake Total 754 ml Output Total 1200 ml Balance -446 ml Intake Oral 554 ml IV Total 200 ml Output Urine Total 1200 ml # Bowel Movements 2 Medications Current Medications Medications Dose Ordered Sig/Taryn Route Start Time Stop Time Status Last Admin Dose Admin Metronidazole 100 ml @ 100 mls/hr Q8HR IV 05/23/24 06:00 05/25/24 05:59 100 MLS/HR Furosemide 20 mg DAILY IV 05/23/24 10:00 05/24/24 11:11 20 MG Sodium Chloride 10 ml Q8HR IV 05/23/24 06:00 05/25/24 06:49 10 ML Ondansetron HCl 4 mg Q4HP PRN IV 05/22/24 23:45 Tamsulosin HCl 0.4 mg QPM PO 05/23/24 18:00 05/24/24 17:59 0.4 MG Famotidine 20 mg DAILY IV 05/23/24 10:00 05/24/24 11:12 20 MG Nitroglycerin 0.4 mg Q5MINP PRN SL 05/23/24 02:00 Morphine Sulfate 2 mg Q30M PRN IV 05/23/24 02:00 Apixaban 2.5 mg BID PO 05/23/24 10:00 05/24/24 22:54 2.5 MG Carvedilol 3.125 mg Q12HR PO 05/24/24 10:00 05/24/24 23:00 3.125 MG Sacubitril/ Valsartan 1 tab BID PO 05/24/24 10:00 05/24/24 22:54 1 TAB Loperamide HCl 2 mg PRN PRN PO 05/24/24 12:15 05/24/24 14:27 2 MG Vancomycin HCl 125 mg QID PO 05/24/24 18:00 05/25/24 05:59 125 MG Acetaminophen 650 mg Q6HP PRN PO 05/25/24 06:45 05/25/24 06:48 650 MG Laboratory Results Laboratory Tests 05/23/24 09:58 Urinalysis Test 05/22/24 18:44 Urine Color Yellow (Yellow) Urine Clarity Clear (Clear) Urine pH 5.5 (5.0-9.0) Urine Specific [place] 1.017 (1.001-1.035) Urine Protein Trace (Negative) H Urine Ketones Negative (Negative) Urine Blood 2+ /uL (Negative) H Urine Nitrite Negative (Negative) Urine Bilirubin Negative (Negative) Urine Urobilinogen Normal mg/dL (Negative) Urine Leukocyte Esterase Negative /uL (Negative) Urine RBC 80 /hpf (0 - 3) Urine Microscopic WBC 3 /HPF (0-3) Urine Squamous Epithelial Cells Few /hpf (<5) Urine Bacteria None seen /hpf (None Seen) Urine Hyaline Casts Few /lpf (0 - 2) Urine Mucus Few (None Seen) Urine Glucose Normal mg/dL (Normal) Microbiology Microbiology Date/Time Source Procedure Growth Status 05/23/24 14:40 Blood Blood Culture - Preliminary NO GROWTH AFTER 24 HOURS OF INCUBATION. Resulted 05/23/24 09:00 Stool Stool Culture - Preliminary Resulted 05/23/24 09:00 Stool Shiga Toxin I & II Pending Resulted 05/23/24 09:00 Stool Clostridium difficile Toxin Assay - Final Resulted Labs and/or images reviewed: Labs reviewed by me, Image(s) reviewed by me Assessment/Plan Assessment/Plan Acute Abdominal pain Acute enterocolitis: Rocephin Flagyl C diff colitis: Flagyl 500 mg IV q.8 hours, vancomycin 125 mg p.o. QID Diastolic heart failure Coronary artery disease, status post CABG : Cardiology consult by Dr. Escobar appreciated, per Dr. Escobar, not a candidate for heart catheterization secondary to current infection Valvular heart disease, status post aortic valve replacement Persistent AFib Sick sinus syndrome, status post pacemaker implantation Pulmonary fibrosis/advanced COPD Peripheral artery disease Carotid artery stenosis Dementia Bladder Calculi and diverticuli: Urology consult for Dr. Go appreciated, advised conservative management Hearing impairment Hypertension Hyperlipidemia Daughter Megan [phone] at bed side Plan discussed with: Patient, Daughter, Other (RN) My Orders Orders - JAVON GUTIERREZ MD Procedure Category Date Status Time Loperamide Capsule PHA 05/24/24 In Process (Imodium Capsule) 12:15 Date of Service: May 25, 2024 Billing Provider: JAVON GUTIERREZ MD Common Visit Codes: [id number] INP/OBS CARE(HIGH) JAVON GUTIERREZ MD May 25, 2024 10:31
--- NOTE | 2024-05-25 10:32 | CONS ---
Pharmacy Clinical Information: CQM HF (MISSING MRA, SGLT2). Patient's serum glucose is on the lower end (most recent is 88); additionally patient is 88 years old and is at risk of hypoglycemia. Currently, the patient has been diagnosed with C. Diff colitis and is experiencing diarrhea, which might contribute to dehydration. As both SGLT2 and MRA may put the patient at risk of dehydration, might be beneficial to wait until diarrhea is resolved. All these should be noted if initiating an SGLT2 and MRA at the discretion of the account development specialist. LY LEIVA PHARMACIST May 25, 2024 10:32
[2024-05-25] MEDS: LACTATED RINGER'S 1,000 ML IV SCH (11:28)
[2024-05-25 11:57] LABS: Basophils # (auto) 0 10 ^3/uL (0-0.2); Eosinophils # (auto) 0.2 10 ^3/uL (0-0.8); Eosinophils % (auto) 5.8 % (0.0-7.0); Hemoglobin 13.4 g/dL (13.5-17.5); Lymphocytes # (auto) 0.6 10 ^3/uL (0.4-5.4); Monocytes # (auto) 0.5 10 ^3/uL (0-1.3); Neutrophils # (auto) 2.1 10 ^3/uL (1.6-8.6)
[2024-05-25 12:00] LABS: Basophils % (auto) 1.4 % (0.0-2.0); Hematocrit 39.7 % (41.0-53.0); Lymphocytes % (auto) 16.9 % (10.0-50.0); Mean Corpuscular Hgb Conc. 33.8 g/dL (32.0-36.0); Mean Corpuscular Volume 106.7 fL (80.0-100.0); Monocytes % (auto) 14.3 % (0.0-12.0); Neutrophils % (auto) 61.6 % (37.0-80.0); Nucleated Red Blood Cells % 0.2 %; Platelet Count (auto) 148 10^3/uL (140-450); Red Blood Cells 3.72 10^6/uL (4.5-5.90); Red Cell Distribution Width 14.7 % (11.8-14.3); White Blood Cell 3.3 10^3/uL (4.4-10.8)
[2024-05-25 12:22] LABS: Alkaline Phosphatase 55 U/L (46-116); Anion Gap 9 (5-15); Aspartate Aminotransferase 17 U/L (13-40); BUN/Creatinine Ratio 12.3 (10.0-20.0); Bilirubin, Total 0.6 mg/dL (0.2-1.0); Blood Urea Nitrogen 10 mg/dL (9-23); Carbon Dioxide 27 mmol/L (20-31); Chloride 104 mmol/L (98-107); Glucose 91 mg/dL (74-106); Sodium 140 mmol/L (136-145)
[2024-05-25 12:23] LABS: Alanine Aminotransferase 9 U/L (7-40); Albumin 2.9 g/dL (3.2-4.8); Calcium 8.6 mg/dL (8.7-10.4); Potassium 2.7 mmol/L (3.5-5.1); Total Protein 4.9 g/dL (5.7-8.2)
--- NOTE | 2024-05-25 16:55 | DVHPN2 ---
Progress Note - Dictate Date Seen: May 25, 2024 Medical Necessity Reason Pt with a Central, PICC or Fol: No Subjective No new complaints ; stool for C diff was positive Patient is still having some watery diarrhea about 2-3 episodes a day No GI bleeding is reported Patient is tolerating diet vital signs Vital Sign Date Time Temp Pulse Resp B/P (MAP) Pulse Ox O2 Delivery O2 Flow Rate FiO2 05/25/24 13:00 98.2 76 17 91/41 (58) 98 98.2 05/25/24 08:00 Nasal Cannula* 3 32 Total Intake and Output 05/24/24 05/24/24 05/25/24 15:00 23:00 07:00 Intake Total 454 ml 300 ml Output Total 750 ml 450 ml Balance -296 ml -150 ml medications Current Medications Medications Dose Ordered Sig/Taryn Route Start Time Stop Time Status Last Admin Dose Admin Metronidazole 100 ml @ 100 mls/hr Q8HR IV 05/23/24 06:00 05/25/24 15:21 100 MLS/HR Furosemide 20 mg DAILY IV 05/23/24 10:00 05/24/24 11:11 20 MG Sodium Chloride 10 ml Q8HR IV 05/23/24 06:00 05/25/24 15:21 10 ML Ondansetron HCl 4 mg Q4HP PRN IV 05/22/24 23:45 Tamsulosin HCl 0.4 mg QPM PO 05/23/24 18:00 05/24/24 17:59 0.4 MG Famotidine 20 mg DAILY IV 05/23/24 10:00 05/25/24 11:22 20 MG Nitroglycerin 0.4 mg Q5MINP PRN SL 05/23/24 02:00 Morphine Sulfate 2 mg Q30M PRN IV 05/23/24 02:00 Apixaban 2.5 mg BID PO 05/23/24 10:00 05/25/24 11:22 2.5 MG Carvedilol 3.125 mg Q12HR PO 05/24/24 10:00 05/25/24 11:23 3.125 MG Sacubitril/ Valsartan 1 tab BID PO 05/24/24 10:00 05/25/24 11:22 1 TAB Loperamide HCl 2 mg PRN PRN PO 05/24/24 12:15 05/24/24 14:27 2 MG Vancomycin HCl 125 mg QID PO 05/24/24 18:00 05/25/24 11:33 125 MG Acetaminophen 650 mg Q6HP PRN PO 05/25/24 06:45 05/25/24 15:22 650 MG Lactated Ringer's 1,000 ml @ 125 mls/hr Q8H IV 05/25/24 10:30 05/25/24 11:28 125 MLS/HR objective General Appeara: Cachetic, Thin Eye Exam: bilateral eye PERRL Pulmonary/Respiratory: Rales, Rhonci Cardiovascular/Chest: Systolic murmur Abdominal Exam: Normal bowel sounds, Soft laboratory and microbiology Laboratory Tests 05/25/24 11:15 Test 05/25/24 11:15 Range/Units Serum Glucose 91 74-106 mg/dL CT Angigram IMPRESSION: 1. No large central pulmonary embolism. Questionable small embolus in the left lower lobe segmental branch could be artifact. Attention on follow-up is recommended. 2. Moderate to large bilateral pleural effusions. Patchy consolidation and septal thickening in both lungs. Likely congestive failure or fluid overload with possible superimposed infectious / inflammatory process. Clinical correlation and continued follow-up is recommended. Problems(with codes): (1) C. difficile colitis (2) Diarrhea (3) Bladder diverticulum (4) Generalized weakness Prognosis PLAN -Continue with vancomycin 125 mg p.o. q.i.d., Flagyl IV 500 mg Q eight. -C diff positive; add probiotic - stool occult negative and many WBC -Questran and Lomotil as needed for diarrhea -continue management of heart failure as primary and Cardiology team -we will continue following this patient. Plan discussed with: Patient, Other (Nurse Sloan) MAGDA KENDRICK MD May 25, 2024 16:55
[2024-05-25] MEDS: CHOLESTYRAMINE 4 GM POWDER PO SCH (22:11)
[2024-05-26] VITALS (8 sets, daily range): BP systolic 98–120; BP diastolic 44–54; PULSE 65–79; RESP 17–19; TEMP 97.1–97.9; O2SAT 96–98
--- NOTE | 2024-05-26 06:36 | DVHPN2 ---
Progress Note - Dictate Date Seen: May 26, 2024 Medical Necessity Reason Pt with a Central, PICC or Fol: No vital signs Vital Sign Date Time Temp Pulse Resp B/P (MAP) Pulse Ox O2 Delivery O2 Flow Rate FiO2 05/26/24 05:00 97.6 65 18 99/44 (62) 96 97.6 05/25/24 20:00 Nasal Cannula* 3 32 Total Intake and Output 05/25/24 05/25/24 05/26/24 15:00 23:00 07:00 Intake Total 975 ml 675 ml Output Total 125 ml 300 ml Balance 850 ml 375 ml medications Current Medications Medications Dose Ordered Sig/Taryn Route Start Time Stop Time Status Last Admin Dose Admin Metronidazole 100 ml @ 100 mls/hr Q8HR IV 05/23/24 06:00 05/26/24 05:03 100 MLS/HR Furosemide 20 mg DAILY IV 05/23/24 10:00 05/24/24 11:11 20 MG Sodium Chloride 10 ml Q8HR IV 05/23/24 06:00 05/26/24 05:03 10 ML Ondansetron HCl 4 mg Q4HP PRN IV 05/22/24 23:45 Tamsulosin HCl 0.4 mg QPM PO 05/23/24 18:00 05/25/24 18:11 0.4 MG Famotidine 20 mg DAILY IV 05/23/24 10:00 05/25/24 11:22 20 MG Nitroglycerin 0.4 mg Q5MINP PRN SL 05/23/24 02:00 Morphine Sulfate 2 mg Q30M PRN IV 05/23/24 02:00 Apixaban 2.5 mg BID PO 05/23/24 10:00 05/25/24 20:46 2.5 MG Carvedilol 3.125 mg Q12HR PO 05/24/24 10:00 05/25/24 20:48 3.125 MG Sacubitril/ Valsartan 1 tab BID PO 05/24/24 10:00 05/25/24 21:14 1 TAB Loperamide HCl 2 mg PRN PRN PO 05/24/24 12:15 05/24/24 14:27 2 MG Vancomycin HCl 125 mg QID PO 05/24/24 18:00 05/26/24 05:03 125 MG Acetaminophen 650 mg Q6HP PRN PO 05/25/24 06:45 05/25/24 15:22 650 MG Lactated Ringer's 1,000 ml @ 125 mls/hr Q8H IV 05/25/24 10:30 05/26/24 02:30 125 MLS/HR Saccharomyces Arieldii 250 mg DAILY PO 05/26/24 10:00 Cholestyramine Resin 4 gm Q12HR@11,23 PO 05/25/24 23:00 05/25/24 22:11 4 GM laboratory and microbiology Laboratory Tests 05/25/24 11:15 Test 05/25/24 11:15 Range/Units Serum Glucose 91 74-106 mg/dL Assessment/Plan Patient is a 88-year-old gentleman who presented to the hospital with days of abdominal pain and diarrhea. He did receive some course of antibiotics as outpatient recently. Patient is known to our practice from outside and before. Cardiology is involved for cardiac aspects of care. Patient does have history of coronary artery disease and has had CABG and aortic valve replacement before. Does have pacemaker and does have persistent atrial fibrillation. His history also includes advanced pulmonary fibrosis on home oxygen. Elderly gentleman with poor functional capacity and frail. No JVD. Mucosa is pink and wet. No carotid bruit. Lungs reveal scattered rhonchi and crackles. Cardiac: Regular, no thrill/gallop. Systolic murmur 3/6 in the apex is heard. Abdomen is soft. Bowel sound is positive. There is no peripheral edema. Dorsalis pedis is 1+ bilateral. 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 Creatinine: 0.8 - 0.85 - 0.81 Potassium: 4.0 - 3.0 - 2.7 BNP: 1583.60 - 1931.31 Troponin (high sensitive): 74 - 73 - 79 - 87 - 87 D-dimer: 2.85 CDT DNA: Detected Chest x-ray reported: Lines and Tubes: Dual-lead pacemaker overlying left chest wall. Lungs: Pulmonary edema. Pleura: Probable small bilateral pleural effusions. No pneumothorax. Cardiomediastinal contours: Moderate cardiomegaly. Bones: Unremarkable IMPRESSION: Cardiomegaly and pulmonary edema. CT of the abdomen and pelvis reported: IMPRESSION: 1. Motion limited study. 2. Perirectal inflammatory changes, possible proctitis. 3. Enlarged prostate with impression on the bladder base. 4. Multiple bladder diverticula and bladder calculi. 5. Partially visualized small right and moderate left pleural effusions with overlying atelectasis. 6. Partially visualized cardiomegaly and additional findings as detailed above. 7. Nonspecific nondilated fluid-filled small bowel loops. Findings may be seen with ileus or enteritis in the appropriate clinical setting. No small bowel obstruction. 8. Left inguinal hernia contains a loop of sigmoid colon without evidence for obstruction. CTA of chest revealed: IMPRESSION: 1. No large central pulmonary embolism. Questionable small embolus in the left lower lobe segmental branch could be artifact. Attention on follow-up is recommended. 2. Moderate to large bilateral pleural effusions. Patchy consolidation and septal thickening in both lungs. Likely congestive failure or fluid overload with possible superimposed infectious / inflammatory process. Clinical correlation and continued follow-up is recommended. Venous duplex of lower ext revealed: Impression: 1. No right or left femoropopliteal venous thrombosis. EKG revealed baseline atrial fibrillation with paced ventricular rhythm Echocardiogram reported: Sinus rhythm. Concentric LVH. Biatrial enlargement. Moderate mitral annular calcification. Immobility of the posterior mitral leaflet. Diminished excursion of the leaflets secondary to poor cardiac output. Aortic valve appears to be sclerotic. Possible TAVR valve. Diminished excursion of the leaflets. Moderate calcification noted. The tricuspid and pulmonic normal. Left ventricular function is diminished. EF is approximately 20% with severe anterior apical hypokinesis. [id number] hypokinesis of the inferior lateral wall. There is a peak gradient of24 mmHg across the aortic valve with a mean gradient of 13. Aortic valve area at 1.2 cm2. Moderate tricuspid regurgitation. Right ventricular systolic pressure of55 mmHg. No pericardial effusion masses or vegetations discernible. Patient is a 88-year-old gentleman who does have dementia and poor hearing and presented with abdominal pain and diarrhea. Has been having diarrhea for few days. There is question about weight loss. Completed some course of antibiotics recently. Comorbidities includes coronary artery disease/atrial fibrillation/peripheral artery disease/carotid artery stenosis/dementia/poor functional capacity. Troponin was minimally elevated and flat. Presentation is not considered acute coronary syndrome Increased BNP points toward component of heart failure. Echo revealed systolic heart failure which is new finding for patient. As patient with new systolic heart failure, ischemic work up / LHC can be justified. Will wait until stability and resolution of diarrhea before LHC. Abdominal pain Diarrhea C-Diff colitis Diastolic heart failure Coronary artery disease, status post CABG Valvular heart disease, status post aortic valve replacement Persistent AFib Sick sinus syndrome, status post pacemaker implantation Pulmonary fibrosis/advanced COPD Peripheral artery disease Carotid artery stenosis Dementia Poor hearing Hypertension Hyperlipidemia Proctitis/ileus/enteritis Systolic heart failure. Pulmonary Emboli? (on Eliquis) Cardiac suggestion for management: Managed on telemetry Follow-up electrolytes and kidney function tests and correct abnormalities Request for interrogation of pacemaker ([employer] [facility] [employer]) Continuation of anticoagulation is suggested GDMT for systolic heart failure. On Entresto/Coreg As patient with new systolic heart failure, ischemic work up / LHC can be justified. Will wait until stability and resolution of diarrhea before LHC (possibly as outpatient) C-Diff management as per primary team Further evaluation and management depends on the above and clinical course A total of 55 minutes was spent reviewing the patient record, examining the patient, making a diagnostic and therapeutic plan, discussing this plan with medical personnel, following up on diagnostic studies and following the patient for clinical stability excluding any and all procedures. At least 50% of this time was spent in direct, [id number] contact. Thank you for allowing me to participate in this patient's care. Further recommendations will depend on patient's clinical course. Please do not hesitate to contact me if you have any questions or concerns. This medical document was created using electronic medical record system with [employer] dictation system. Although this document has been carefully reviewed, there may still be some phonetic and typographical errors. These areas are purely typographical due to the imperfection of the software programs, and do not reflect any compromise in the patient's medical care. Plan discussed with: Patient, Other (nurse) CARLOS OGLESBY MD May 26, 2024 06:36
[2024-05-26 07:36] LABS: Basophils # (auto) 0 10 ^3/uL (0-0.2); Basophils % (auto) 1.1 % (0.0-2.0); Eosinophils # (auto) 0.2 10 ^3/uL (0-0.8); Eosinophils % (auto) 7.3 % (0.0-7.0); Hematocrit 38.3 % (41.0-53.0); Hemoglobin 13.2 g/dL (13.5-17.5); Lymphocytes # (auto) 0.7 10 ^3/uL (0.4-5.4); Mean Corpuscular Hemoglobin 36.4 pg (28.0-32.0); Mean Corpuscular Hgb Conc. 34.4 g/dL (32.0-36.0); Mean Corpuscular Volume 105.9 fL (80.0-100.0); Monocytes # (auto) 0.4 10 ^3/uL (0-1.3); Monocytes % (auto) 12.1 % (0.0-12.0); Neutrophils # (auto) 1.8 10 ^3/uL (1.6-8.6); Neutrophils % (auto) 57.5 % (37.0-80.0); Nucleated Red Blood Cells % 0.1 %; Platelet Count (auto) 142 10^3/uL (140-450); Red Blood Cells 3.62 10^6/uL (4.5-5.90); Red Cell Distribution Width 14.7 % (11.8-14.3); White Blood Cell 3.2 10^3/uL (4.4-10.8)
[2024-05-26 07:54] LABS: Alkaline Phosphatase 55 U/L (46-116); Anion Gap 7 (5-15); Aspartate Aminotransferase 14 U/L (13-40); BUN/Creatinine Ratio 12.7 (10.0-20.0); Carbon Dioxide 27 mmol/L (20-31); Chloride 106 mmol/L (98-107); Sodium 140 mmol/L (136-145)
[2024-05-26 07:55] LABS: Alanine Aminotransferase 9 U/L (7-40); Albumin 2.7 g/dL (3.2-4.8); Bilirubin, Total 0.6 mg/dL (0.2-1.0); Blood Urea Nitrogen 9 mg/dL (9-23); Calcium 8.4 mg/dL (8.7-10.4); Total Protein 4.6 g/dL (5.7-8.2)
[2024-05-26 09:02] LABS: Glucose 79 mg/dL (74-106)
[2024-05-26] MEDS: FLORASTOR (S. BOULARDII) 250 MG CAP PO SCH (10:47)
--- NOTE | 2024-05-26 11:05 | DVHPN2 ---
Reviewed: Care Plan, H&P, Labs, Medications, Previous Orders, Radiology Changes from previous H/P or p: No Changes Eyes: No Pain, No Vision change, No Conjunctivae inflammation, No Eyelid inflammation, No Other, No Redness ENT: No Ear pain, No Ear discharge, No Nose pain, No Nose discharge, No Nose congestion, No Mouth pain, No Mouth swelling, No Throat pain, No Throat swelling, No Other Cardiovascular: No Chest Pain, No Palpitations, No Orthopnea, No Paroxysmal Noc. Dyspnea, No Edema, No Lt Headedness, No Other Respiratory: No Cough, No Dry; Shortness of breath; No SOB with excertion, No Wheezing, No Hemoptysis, No Pleuritic Pain, No Sputum, No Other Gastrointestinal: No Nausea, No Vomiting; Abdominal Pain, Diarrhea; No Constipation, No Melena, No Hematochezia, No Other Genitourinary: No Dysuria, No Frequency, No Incontinence, No Hematuria, No Retention, No Other Musculoskeletal: No other, No neck pain, No shoulder pain, No arm pain, No back pain, No hand pain, No leg pain, No foot pain Skin: No Rash, No Lesions, No Jaundice, No Bruising, No Other Objective Vitals Vital Signs Date Time Temp Pulse Resp B/P (MAP) Pulse Ox O2 Delivery O2 Flow Rate FiO2 05/26/24 05:00 97.6 65 18 99/44 (62) 96 97.6 05/25/24 20:00 Nasal Cannula* 3 32 Intake/Output Intake and Output 05/26/24 07:00 Intake Total 1650 ml Output Total 425 ml Balance 1225 ml Intake Oral 350 ml IV Total 1300 ml Output Urine Total 425 ml # Bowel Movements 5 Medications Current Medications Medications Dose Ordered Sig/Taryn Route Start Time Stop Time Status Last Admin Dose Admin Metronidazole 100 ml @ 100 mls/hr Q8HR IV 05/23/24 06:00 05/26/24 05:03 100 MLS/HR Furosemide 20 mg DAILY IV 05/23/24 10:00 05/24/24 11:11 20 MG Sodium Chloride 10 ml Q8HR IV 05/23/24 06:00 05/26/24 05:03 10 ML Ondansetron HCl 4 mg Q4HP PRN IV 05/22/24 23:45 Tamsulosin HCl 0.4 mg QPM PO 05/23/24 18:00 3/4/25 18:11 0.4 MG Famotidine 20 mg DAILY IV 05/23/24 10:00 05/25/24 11:22 20 MG Nitroglycerin 0.4 mg Q5MINP PRN SL 05/23/24 02:00 Morphine Sulfate 2 mg Q30M PRN IV 05/23/24 02:00 Apixaban 2.5 mg BID PO 05/23/24 10:00 05/25/24 20:46 2.5 MG Carvedilol 3.125 mg Q12HR PO 05/24/24 10:00 05/25/24 20:48 3.125 MG Sacubitril/ Valsartan 1 tab BID PO 05/24/24 10:00 05/25/24 21:14 1 TAB Loperamide HCl 2 mg PRN PRN PO 05/24/24 12:15 05/24/24 14:27 2 MG Vancomycin HCl 125 mg QID PO 05/24/24 18:00 05/26/24 05:03 125 MG Acetaminophen 650 mg Q6HP PRN PO 05/25/24 06:45 05/25/24 15:22 650 MG Lactated Ringer's 1,000 ml @ 125 mls/hr Q8H IV 05/25/24 10:30 05/26/24 02:30 125 MLS/HR Saccharomyces Boulardii 250 mg DAILY PO 05/26/24 10:00 Cholestyramine Resin 4 gm Q12HR@11,23 PO 05/25/24 23:00 05/25/24 22:11 4 GM Laboratory Results Laboratory Tests 05/26/24 05:15 Chemistry Test 05/25/24 11:15 05/26/24 05:15 Albumin 2.9 g/dL (3.2-4.8) L 2.7 g/dL (3.2-4.8) L Calcium Level 8.6 mg/dL (8.7-10.4) L 8.4 mg/dL (8.7-10.4) L Total Protein 4.9 g/dL (5.7-8.2) L 4.6 g/dL (5.7-8.2) L LFT Test 05/25/24 11:15 05/26/24 05:15 Alanine Aminotransferase (ALT) 9 U/L (7-40) 9 U/L (7-40) Alkaline Phosphatase 55 U/L (46-116) 55 U/L (46-116) Aspartate Amino Transferase (AST) 17 U/L (13-40) 14 U/L (13-40) Total Bilirubin 0.6 mg/dL (0.2-1.0) 0.6 mg/dL (0.2-1.0) Urinalysis Test 05/22/24 18:44 Urine Color Yellow (Yellow) Urine Clarity Clear (Clear) Urine pH 5.5 (5.0-9.0) Urine Specific Priddy 1.017 (1.001-1.035) Urine Protein Trace (Negative) H Urine Ketones Negative (Negative) Urine Blood 2+ /uL (Negative) H Urine Nitrite Negative (Negative) Urine Bilirubin Negative (Negative) Urine Urobilinogen Normal mg/dL (Negative) Urine Leukocyte Esterase Negative /uL (Negative) Urine RBC 80 /hpf (0 - 3) Urine Microscopic WBC 3 /HPF (0-3) Urine Squamous Epithelial Cells Few /hpf (<5) Urine Bacteria None seen /hpf (None Seen) Urine Hyaline Casts Few /lpf (0 - 2) Urine Mucus Few (None Seen) Urine Glucose Normal mg/dL (Normal) Microbiology Microbiology Date/Time Source Procedure Growth Status 05/23/24 14:40 Blood Blood Culture - Preliminary NO GROWTH AFTER 48 HOURS OF INCUBATION. Resulted 05/23/24 09:00 Stool Stool Culture - Final Complete 05/23/24 09:00 Stool Shiga Toxin I & II - Final Complete 05/23/24 09:00 Stool Clostridium difficile Toxin Assay - Final Complete Labs and/or images reviewed: Labs reviewed by me, Image(s) reviewed by me Assessment/Plan Assessment/Plan Acute Abdominal pain Acute enterocolitis: Rocephin Flagyl C diff colitis: Flagyl 500 mg IV q.8 hours, vancomycin 125 mg p.o. QID Acute on chronic Diastolic heart failure Coronary artery disease, status post CABG : Cardiology consult by Dr. Escobar appreciated, per Dr. Escobar, not a candidate for heart catheterization secondary to current infection Valvular heart disease, status post aortic valve replacement Persistent AFib Sick sinus syndrome, status post pacemaker implantation Pulmonary fibrosis/advanced COPD Peripheral artery disease Carotid artery stenosis Acute hypokalemia: Replace kcl Dementia Bladder Calculi and diverticuli: Urology consult for Dr. Go appreciated, advised conservative management Hearing impairment Hypertension Hyperlipidemia Daughter Megan [phone] at bed side Plan discussed with: Daughter My Orders Orders - JAVON GUTIERREZ MD Procedure Category Date Status Time Pt Request For Service PT 05/26/24 Transmitted 10:44 Date of Service: May 26, 2024 Billing Provider: JAVON GUTIERREZ MD Common Visit Codes: [id number] INP/OBS CARE(HIGH) JAVON GUTIERREZ MD May 26, 2024 11:05
[2024-05-26] MEDS: HYDROcodone-ACET 5/325MG TAB PO ONE (11:54)
[2024-05-26] MEDS: POTASSIUM EFFERVESENT TAB 25 MEQ PO ONE (11:54)
[2024-05-26] MEDS: IOHEXOL 350 MG/ML 100ML IJ ONE (11:55)
--- NOTE | 2024-05-26 21:05 | DVHPN2 ---
Progress Note - Dictate Date Seen: May 26, 2024 Medical Necessity Reason Pt with a Central, PICC or Fol: No Subjective No new complaints ; stool for C diff was positive Patient is still having some watery diarrhea ; five bowel movements recorded yesterday and one today No GI bleeding is reported Patient is tolerating diet vital signs Vital Sign Date Time Temp Pulse Resp B/P (MAP) Pulse Ox O2 Delivery O2 Flow Rate FiO2 05/26/24 20:00 Nasal Cannula* 3 32 05/26/24 17:00 97.9 73 18 113/52 (72) 98 97.9 Total Intake and Output 05/25/24 05/25/24 05/26/24 15:00 23:00 07:00 Intake Total 975 ml 675 ml Output Total 125 ml 300 ml Balance 850 ml 375 ml medications Current Medications Medications Dose Ordered Sig/Taryn Route Start Time Stop Time Status Last Admin Dose Admin Metronidazole 100 ml @ 100 mls/hr Q8HR IV 05/23/24 06:00 05/26/24 14:19 100 MLS/HR Furosemide 20 mg DAILY IV 05/23/24 10:00 05/26/24 11:54 20 MG Sodium Chloride 10 ml Q8HR IV 05/23/24 06:00 05/26/24 14:12 10 ML Ondansetron HCl 4 mg Q4HP PRN IV 05/22/24 23:45 Tamsulosin HCl 0.4 mg QPM PO 05/23/24 18:00 05/26/24 17:26 0.4 MG Famotidine 20 mg DAILY IV 05/23/24 10:00 05/26/24 10:48 20 MG Nitroglycerin 0.4 mg Q5MINP PRN SL 05/23/24 02:00 Morphine Sulfate 2 mg Q30M PRN IV 05/23/24 02:00 Apixaban 2.5 mg BID PO 05/23/24 10:00 05/26/24 10:47 2.5 MG Carvedilol 3.125 mg Q12HR PO 05/24/24 10:00 05/26/24 10:48 3.125 MG Sacubitril/ Valsartan 1 tab BID PO 05/24/24 10:00 05/26/24 10:47 1 TAB Loperamide HCl 2 mg PRN PRN PO 05/24/24 12:15 05/24/24 14:27 2 MG Vancomycin HCl 125 mg QID PO 05/24/24 18:00 05/26/24 17:26 125 MG Acetaminophen 650 mg Q6HP PRN PO 05/25/24 06:45 05/25/24 15:22 650 MG Lactated Ringer's 1,000 ml @ 125 mls/hr Q8H IV 05/25/24 10:30 05/26/24 02:30 125 MLS/HR Saccharomyces Boulardii 250 mg DAILY PO 05/26/24 10:00 05/26/24 10:47 250 MG Cholestyramine Resin 4 gm Q12HR@11,23 PO 05/25/24 23:00 05/26/24 14:18 4 GM objective General Appeara: Cachetic, Thin Eye Exam: bilateral eye PERRL Pulmonary/Respiratory: Rales, Rhonci Cardiovascular/Chest: Systolic murmur Abdominal Exam: Normal bowel sounds, Soft laboratory and microbiology Laboratory Tests 05/26/24 05:15 Test 05/26/24 05:15 Range/Units Serum Glucose 79 74-106 mg/dL Problems(with codes): (1) C. difficile colitis (2) Bladder calculi (3) Diarrhea (4) Macrocytosis Prognosis Plan Continue vancomycin 125 mg p.o. q.6 hours Add probiotics Questran 4 g packet p.o. twice a day to help with diarrhea Supportive care Plan discussed with: MAGDA Adkins MD May 26, 2024 21:05
[2024-05-27] VITALS (9 sets, daily range): BP systolic 105–120; BP diastolic 41–72; PULSE 65–80; RESP 16–18; TEMP 97.2–98.1; O2SAT 97–98
--- NOTE | 2024-05-27 07:13 | DVHNC2 ---
Procedure - [facility] interrogation: Remaining battery capacity: 41% Voltage: 2.96 volts DDIR: 75 AP: 3% BP: 83% AT/AF burden: > 99% Lead impedance: A 350/V 410 Ohms Normal working pacemaker CARLOS OGLESBY MD May 27, 2024 07:13
[2024-05-27 07:14] LABS: Basophils # (auto) 0 10 ^3/uL (0-0.2); Basophils % (auto) 1.3 % (0.0-2.0); Eosinophils # (auto) 0.2 10 ^3/uL (0-0.8); Eosinophils % (auto) 5.8 % (0.0-7.0); Hemoglobin 13.9 g/dL (13.5-17.5); Lymphocytes # (auto) 0.7 10 ^3/uL (0.4-5.4); Lymphocytes % (auto) 20.7 % (10.0-50.0); Mean Corpuscular Hemoglobin 35.7 pg (28.0-32.0); Mean Corpuscular Hgb Conc. 33.2 g/dL (32.0-36.0); Mean Corpuscular Volume 107.7 fL (80.0-100.0); Monocytes # (auto) 0.5 10 ^3/uL (0-1.3); Monocytes % (auto) 14.1 % (0.0-12.0); Neutrophils % (auto) 58.1 % (37.0-80.0); Platelet Count (auto) 156 10^3/uL (140-450); Red Cell Distribution Width 15.3 % (11.8-14.3); White Blood Cell 3.5 10^3/uL (4.4-10.8)
--- NOTE | 2024-05-27 07:15 | DVHPN2 ---
Progress Note - Dictate Date Seen: May 27, 2024 Medical Necessity Reason Pt with a Central, PICC or Fol: No vital signs Vital Sign Date Time Temp Pulse Resp B/P (MAP) Pulse Ox O2 Delivery O2 Flow Rate FiO2 05/27/24 05:00 97.7 80 18 111/50 (70) 97 97.7 05/26/24 20:00 Nasal Cannula* 3 32 Total Intake and Output 05/26/24 05/26/24 05/27/24 15:00 23:00 07:00 Intake Total 480 ml 500 ml Output Total 700 ml 800 ml Balance -220 ml -300 ml medications Current Medications Medications Dose Ordered Sig/Taryn Route Start Time Stop Time Status Last Admin Dose Admin Metronidazole 100 ml @ 100 mls/hr Q8HR IV 05/23/24 06:00 05/27/24 05:48 100 MLS/HR Furosemide 20 mg DAILY IV 05/23/24 10:00 05/26/24 11:54 20 MG Sodium Chloride 10 ml Q8HR IV 05/23/24 06:00 05/27/24 05:49 10 ML Ondansetron HCl 4 mg Q4HP PRN IV 05/22/24 23:45 Tamsulosin HCl 0.4 mg QPM PO 05/23/24 18:00 05/26/24 17:26 0.4 MG Famotidine 20 mg DAILY IV 05/23/24 10:00 05/26/24 10:48 20 MG Nitroglycerin 0.4 mg Q5MINP PRN SL 05/23/24 02:00 Morphine Sulfate 2 mg Q30M PRN IV 05/23/24 02:00 Apixaban 2.5 mg BID PO 05/23/24 10:00 05/26/24 22:45 2.5 MG Carvedilol 3.125 mg Q12HR PO 05/24/24 10:00 05/26/24 22:46 3.125 MG Sacubitril/ Valsartan 1 tab BID PO 05/24/24 10:00 05/26/24 22:46 1 TAB Loperamide HCl 2 mg PRN PRN PO 05/24/24 12:15 05/24/24 14:27 2 MG Vancomycin HCl 125 mg QID PO 05/24/24 18:00 05/27/24 05:48 125 MG Acetaminophen 650 mg Q6HP PRN PO 05/25/24 06:45 05/25/24 15:22 650 MG Lactated Ringer's 1,000 ml @ 125 mls/hr Q8H IV 05/25/24 10:30 05/26/24 02:30 125 MLS/HR Saccharomyces Arieldii 250 mg DAILY PO 05/26/24 10:00 05/26/24 10:47 250 MG Cholestyramine Resin 4 gm Q12HR@11,23 PO 05/25/24 23:00 05/26/24 22:46 4 GM laboratory and microbiology Test 05/27/24 06:46 Range/Units Serum Glucose Pending Assessment/Plan Patient is a 88-year-old gentleman who presented to the hospital with days of abdominal pain and diarrhea. He did receive some course of antibiotics as outpatient recently. Patient is known to our practice from outside and before. Cardiology is involved for cardiac aspects of care. Patient does have history of coronary artery disease and has had CABG and aortic valve replacement before. Does have pacemaker and does have persistent atrial fibrillation. His history also includes advanced pulmonary fibrosis on home oxygen. Elderly gentleman with poor functional capacity and frail. No JVD. Mucosa is pink and wet. No carotid bruit. Lungs reveal scattered rhonchi and crackles. Cardiac: Regular, no thrill/gallop. Systolic murmur 3/6 in the apex is heard. Abdomen is soft. Bowel sound is positive. There is no peripheral edema. Dorsalis pedis is 1+ bilateral. 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 BNP: 1583.60 - 1931.31 Troponin (high sensitive): 74 - 73 - 79 - 87 - 87 D-dimer: 2.85 CDT DNA: Detected Chest x-ray reported: Lines and Tubes: Dual-lead pacemaker overlying left chest wall. Lungs: Pulmonary edema. Pleura: Probable small bilateral pleural effusio ns. No pneumothorax. Cardiomediastinal contours: Moderate cardiomegaly. Bones: Unremarkable IMPRESSION: Cardiomegaly and pulmonary edema. CT of the abdomen and pelvis reported: IMPRESSION: 1. Motion limited study. 2. Perirectal inflammatory changes, possible proctitis. 3. Enlarged prostate with impression on the bladder base. 4. Multiple bladder diverticula and bladder calculi. 5. Partially visualized small right and moderate left pleural effusions with overlying atelectasis. 6. Partially visualized cardiomegaly and additional findings as detailed above. 7. Nonspecific nondilated fluid-filled small bowel l oops. Findings may be seen with ileus or enteritis in the appropriate clinical setting. No small bowel obstruction. 8. Left inguinal hernia contains a loop of sigmoid colon without evidence for obstruction. CTA of chest revealed: IMPRESSION: 1. No large central pulmonary embolism. Questionable small embolus in the left lower lobe segmental branch could be artifact. Attention on follow-up is recommended. 2. Moderate to large bilateral pleural effusions. Patchy consolidation and septal thickening in both lungs. Likely congestive failure or fluid overload with possible superimposed infectious / inflammatory process. Clinical correlation and continued follow-up is recommended. Venous duplex of lower ext revealed: Impression: 1. No right or left femoropopliteal venous thrombosis. EKG revealed baseline atrial fibrillation with paced ventricular rhythm Echocardiogram reported: Sinus rhythm. Concentric LVH. Biatrial enlargement. Moderate mitral annular calcification. Immobility of the posterior mitral leaflet. Diminished excursion of the leaflets secondary to poor cardiac output. Aortic valve appears to be sclerotic. Possible TAVR valve. Diminished excursion of the leaflets. Moderate calcification noted. The tricuspid and pulmonic normal. Left ventricular function is diminished. EF is approximately 20% with severe anterior apical hypokinesis. [id number] hypokinesis of the inferior lateral wall. There is a peak gradient of24 mmHg across the aortic valve with a mean gradient of 13. Aortic valve area at 1.2 cm2. Moderate tricuspid regurgitation. Right ventricular systolic pressure of55 mmHg. No pericardial effusion masses or vegetations discernible. [employer] interrogation: Remaining battery capacity: 41%; Voltage: 2.96 volts; DDIR: 75; AP: 3%; [employer]AT [employer]: 83% ; AT/AF burden: > 99% Lead impedance: A 350/V 410 Ohms; Normal working pacemaker Patient is a 88-year-old gentleman who does have dementia and poor hearing and presented with abdominal pain and diarrhea. Has been having diarrhea for few days. There is question about weight loss. Completed some course of antibiotics recently. Comorbidities includes coronary artery disease/atrial fibrillation/peripheral artery disease/carotid artery stenosis/dementia/poor functional capacity. Troponin was minimally elevated and flat. Presentation is not considered acute coronary syndrome Increased BNP points toward component of heart failure. Echo revealed systolic heart failure which is new finding for patient. As patient with new systolic heart failure, ischemic work up / LHC can be justified. Will wait until stability and resolution of diarrhea before LHC. Abdominal pain Diarrhea C-Diff colitis Diastolic heart failure Coronary artery disease, status post CABG Valvular heart disease, status post aortic valve replacement Persistent AFib Sick sinus syndrome, status post pacemaker implantation Pulmonary fibrosis/advanced COPD Peripheral artery disease Carotid artery stenosis Dementia Poor hearing Hypertension Hyperlipidemia Proctitis/ileus/enteritis Systolic heart failure. Pulmonary Emboli? (on Eliquis) Cardiac suggestion for management: Managed on telemetry Follow-up electrolytes and kidney function tests and correct abnormalities Continuation of anticoagulation is suggested GDMT for systolic heart failure. On Entresto/Coreg As patient with new systolic heart failure, ischemic work up / LHC can be justified. Will wait until stability and resolution of diarrhea before LHC (possibly as outpatient) C-Diff management as per primary team Further evaluation and management depends on the above and clinical course A total of 55 minutes was spent reviewing the patient record, examining the patient, making a diagnostic and therapeutic plan, discussing this plan with medical personnel, following up on diagnostic studies and following the patient for clinical stability excluding any and all procedures. At least 50% of this time was spent in direct, [id number] contact. Thank you for allowing me to participate in this patient's care. Further recommendations will depend on patient's clinical course. Please do not hesitate to contact me if you have any questions or concerns. This medical document was created using electronic medical record system with [employer] computerized dictation system. Although this document has been carefully reviewed, there may still be some phonetic and typographical errors. These areas are purely typographical due to the imperfection of the software programs, and do not reflect any compromise in the patient's medical care. Plan discussed with: Patient, Other (nurse) CARLOS OGLESBY MD May 27, 2024 07:15
[2024-05-27 07:33] LABS: Alanine Aminotransferase < 9 U/L (7-40); Albumin 2.7 g/dL (3.2-4.8); Alkaline Phosphatase 53 U/L (46-116); Anion Gap 7 (5-15); Aspartate Aminotransferase 14 U/L (13-40); BUN/Creatinine Ratio 11.4 (10.0-20.0); Bilirubin, Total 0.6 mg/dL (0.2-1.0); Blood Urea Nitrogen 8 mg/dL (9-23); Calcium 8.5 mg/dL (8.7-10.4); Carbon Dioxide 25 mmol/L (20-31); Chloride 105 mmol/L (98-107); Glucose 91 mg/dL (74-106); Potassium 3.6 mmol/L (3.5-5.1); Sodium 137 mmol/L (136-145); Total Protein 4.7 g/dL (5.7-8.2)
--- NOTE | 2024-05-27 10:43 | DVHPN2 ---
Reviewed: Care Plan, H&P, Labs, Medications, Previous Orders, Radiology Changes from previous H/P or p: No Changes Eyes: No Pain, No Vision change, No Conjunctivae inflammation, No Eyelid inflammation, No Other, No Redness ENT: No Ear pain, No Ear discharge, No Nose pain, No Nose discharge, No Nose congestion, No Mouth pain, No Mouth swelling, No Throat pain, No Throat swelling, No Other Cardiovascular: No Chest Pain, No Palpitations, No Orthopnea, No Paroxysmal Noc. Dyspnea, No Edema, No Lt Headedness, No Other Respiratory: No Cough, No Dry; Shortness of breath; No SOB with excertion, No Wheezing, No Hemoptysis, No Pleuritic Pain, No Sputum, No Other Gastrointestinal: No Nausea, No Vomiting; Abdominal Pain, Diarrhea; No Constipation, No Melena, No Hematochezia, No Other Genitourinary: No Dysuria, No Frequency, No Incontinence, No Hematuria, No Retention, No Other Musculoskeletal: No other, No neck pain, No shoulder pain, No arm pain, No back pain, No hand pain, No leg pain, No foot pain Skin: No Rash, No Lesions, No Jaundice, No Bruising, No Other Objective Vitals Vital Signs Date Time Temp Pulse Resp B/P (MAP) Pulse Ox O2 Delivery O2 Flow Rate FiO2 05/27/24 08:35 97.5 76 16 112/51 (71) 97 97.5 05/26/24 20:00 Nasal Cannula* 3 32 Intake/Output Intake and Output 05/27/24 07:00 Intake Total 980 ml Output Total 1500 ml Balance -520 ml Intake Oral 880 ml IV Total 100 ml Output Urine Total 1500 ml # Bowel Movements 1 Medications Current Medications Medications Dose Ordered Sig/Taryn Route Start Time Stop Time Status Last Admin Dose Admin Metronidazole 100 ml @ 100 mls/hr Q8HR IV 05/23/24 06:00 05/27/24 05:48 100 MLS/HR Furosemide 20 mg DAILY IV 05/23/24 10:00 05/26/24 11:54 20 MG Sodium Chloride 10 ml Q8HR IV 05/23/24 06:00 05/27/24 05:49 10 ML Ondansetron HCl 4 mg Q4HP PRN IV 05/22/24 23:45 Tamsulosin HCl 0.4 mg QPM PO 05/23/24 18:00 3/5/25 17:26 0.4 MG Famotidine 20 mg DAILY IV 05/23/24 10:00 05/26/24 10:48 20 MG Nitroglycerin 0.4 mg Q5MINP PRN SL 05/23/24 02:00 Morphine Sulfate 2 mg Q30M PRN IV 05/23/24 02:00 Apixaban 2.5 mg BID PO 05/23/24 10:00 05/26/24 22:45 2.5 MG Carvedilol 3.125 mg Q12HR PO 05/24/24 10:00 05/26/24 22:46 3.125 MG Sacubitril/ Valsartan 1 tab BID PO 05/24/24 10:00 05/26/24 22:46 1 TAB Loperamide HCl 2 mg PRN PRN PO 05/24/24 12:15 05/24/24 14:27 2 MG Vancomycin HCl 125 mg QID PO 05/24/24 18:00 05/27/24 05:48 125 MG Acetaminophen 650 mg Q6HP PRN PO 05/25/24 06:45 05/25/24 15:22 650 MG Lactated Ringer's 1,000 ml @ 125 mls/hr Q8H IV 05/25/24 10:30 05/26/24 02:30 125 MLS/HR Saccharomyces Boulardii 250 mg DAILY PO 05/26/24 10:00 05/26/24 10:47 250 MG Cholestyramine Resin 4 gm Q12HR@11,23 PO 05/25/24 23:00 05/26/24 22:46 4 GM Laboratory Results Laboratory Tests 05/27/24 06:46 Chemistry Test 05/27/24 06:46 Albumin 2.7 g/dL (3.2-4.8) L Calcium Level 8.5 mg/dL (8.7-10.4) L Total Protein 4.7 g/dL (5.7-8.2) L LFT Test 05/27/24 06:46 Alanine Aminotransferase (ALT) < 9 U/L (7-40) Alkaline Phosphatase 53 U/L (46-116) Aspartate Amino Transferase (AST) 14 U/L (13-40) Total Bilirubin 0.6 mg/dL (0.2-1.0) Urinalysis Test 05/22/24 18:44 Urine Color Yellow (Yellow) Urine Clarity Clear (Clear) Urine pH 5.5 (5.0-9.0) Urine Specific [place] 1.017 (1.001-1.035) Urine Protein Trace (Negative) H Urine Ketones Negative (Negative) Urine Blood 2+ /uL (Negative) H Urine Nitrite Negative (Negative) Urine Bilirubin Negative (Negative) Urine Urobilinogen Normal mg/dL (Negative) Urine Leukocyte Esterase Negative /uL (Negative) Urine RBC 80 /hpf (0 - 3) Urine Microscopic WBC 3 /HPF (0-3) Urine Squamous Epithelial Cells Few /hpf (<5) Urine Bacteria None seen /hpf (None Seen) Urine Hyaline Casts Few /lpf (0 - 2) Urine Mucus Few (None Seen) Urine Glucose Normal mg/dL (Normal) Microbiology Microbiology Date/Time Source Procedure Growth Status 05/23/24 14:40 Blood Blood Culture - Preliminary NO GROWTH AFTER 72 HOURS OF INCUBATION. Resulted 05/23/24 09:00 Stool Stool Culture - Final Complete 05/23/24 09:00 Stool Shiga Toxin I & II - Final Complete 05/23/24 09:00 Stool Clostridium difficile Toxin Assay - Final Complete Labs and/or images reviewed: Labs reviewed by me, Image(s) reviewed by me Assessment/Plan Assessment/Plan Acute Abdominal pain Acute enterocolitis: Rocephin Flagyl C diff colitis: Flagyl 500 mg IV q.8 hours, vancomycin 125 mg p.o. QID Acute on chronic Diastolic heart failure Coronary artery disease, status post CABG : Cardiology consult by Dr. Escobar appreciated, per Dr. Escobar, not a candidate for heart catheterization secondary to current infection Valvular heart disease, status post aortic valve replacement Persistent AFib Sick sinus syndrome, status post pacemaker implantation Pulmonary fibrosis/advanced COPD Peripheral artery disease Carotid artery stenosis Acute hypokalemia: Replace kcl Dementia Bladder Calculi and diverticuli: Urology consult for Dr. Go appreciated, advised conservative management Hearing impairment Hypertension Hyperlipidemia Daughter Megan [phone] at bed side [facility] for two weeks for C diff colitis Plan Is acceptable with the patient's daughter Plan discussed with: Patient My Orders Orders - JAVON GUTIERREZ MD Procedure Category Date Status Time Pt Request For Service PT 05/26/24 Logged 10:44 Insert Midline ORDERS 05/26/24 Transmitted 10:59 Date of Service: May 27, 2024 Billing Provider: JAVON GUTIERREZ MD Common Visit Codes: [id number] INP/OBS CARE(HIGH) JAVON GUTIERREZ MD May 27, 2024 10:43
--- NOTE | 2024-05-27 10:59 | DVHDS2 ---
Discharge Summary Date of Admission May 23, 2024 at 01:53 Date of Discharge: May 27, 2024 Admitting Diagnosis Shortness of breath abdominal pain nausea Wounds: None Labs/Diagnostic Data: Laboratory Results Test 05/27/24 06:46 05/23/24 21:29 05/23/24 15:58 05/23/24 09:58 White Blood Count 3.5 10^3/uL (4.4-10.8) Red Blood Count 3.90 10^6/uL (4.5-5.90) Hemoglobin 13.9 g/dL (13.5-17.5) Hematocrit 42.0 % (41.0-53.0) Mean Corpuscular Volume 107.7 fL (80.0-100.0) Mean Corpuscular Hemoglobin 35.7 pg (28.0-32.0) Mean Corpuscular Hemoglobin Concent 33.2 g/dL (32.0-36.0) Red Cell Distribution Width 15.3 % (11.8-14.3) Platelet Count 156 10^3/uL (140-450) Mean Platelet Volume 10.1 fL (6.9-10.8) Neutrophils (%) (Auto) 58.1 % (37.0-80.0) Lymphocytes (%) (Auto) 20.7 % (10.0-50.0) Monocytes (%) (Auto) 14.1 % (0.0-12.0) Eosinophils (%) (Auto) 5.8 % (0.0-7.0) Basophils (%) (Auto) 1.3 % (0.0-2.0) Neutrophils # (Auto) 2.0 10 ^3/uL (1.6-8.6) Lymphocytes # (Auto) 0.7 10 ^3/uL (0.4-5.4) Monocytes # (Auto) 0.5 10 ^3/uL (0-1.3) Eosinophils # (Auto) 0.2 10 ^3/uL (0-0.8) Basophils # (Auto) 0 10 ^3/uL (0-0.2) Nucleated Red Blood Cells 0.0 % Sodium Level 137 mmol/L (136-145) Potassium Level 3.6 mmol/L (3.5-5.1) Chloride Level 105 mmol/L (98-107) Carbon Dioxide Level 25 mmol/L (20-31) Anion Gap 7 (5-15) Blood Urea Nitrogen 8 mg/dL (9-23) Creatinine 0.70 mg/dL (0.700-1.30) Glomerular Filtration Rate Calc 89 mL/min (>90) BUN/Creatinine Ratio 11.4 (10.0-20.0) Serum Glucose 91 mg/dL (74-106) Calcium Level 8.5 mg/dL (8.7-10.4) Total Bilirubin 0.6 mg/dL (0.2-1.0) Aspartate Amino Transferase (AST) 14 U/L (13-40) Alanine Aminotransferase (ALT) < 9 U/L (7-40) Alkaline Phosphatase 53 U/L (46-116) Total Protein 4.7 g/dL (5.7-8.2) Albumin 2.7 g/dL (3.2-4.8) POC Glucose 97 mg/dl (70-106) Prothrombin Time 13.6 sec (9.3-11.8) Prothrombin Time INR 1.32 (0.9-1.15) D-Dimer, Quantitative 2.85 mg/L FEU (0.0-0.49) Test 05/23/24 09:00 05/23/24 01:05 05/22/24 23:50 05/22/24 18:44 Stool Occult Blood Negative (Negative) Stool Occult Blood Sample #3 (Negative) Stool for White Cells Many Troponin I High Sensitivity 87 ng/L (</=54) B-Type Natriuretic Peptide 1931.31 pg/mL (0-100) Urine Color Yellow (Yellow) Urine Clarity Clear (Clear) Urine pH 5.5 (5.0-9.0) Urine Specific [place] 1.017 (1.001-1.035) Urine Protein Trace (Negative) Urine Ketones Negative (Negative) Urine Blood 2+ /uL (Negative) Urine Nitrite Negative (Negative) Urine Bilirubin Negative (Negative) Urine Urobilinogen Normal mg/dL (Negative) Urine Leukocyte Esterase Negative /uL (Negative) Urine RBC 80 /hpf (0 - 3) Urine Microscopic WBC 3 /HPF (0-3) Urine Squamous Epithelial Cells Few /hpf (<5) Urine Bacteria None seen /hpf (None Seen) Urine Hyaline Casts Few /lpf (0 - 2) Urine Mucus Few (None Seen) Urine Glucose Normal mg/dL (Normal) Test 05/22/24 18:08 Lactic Acid Level 1.5 mmol/L (0.4-2.0) Other Laboratory Tests 05/27/24 06:46 Brief Hx & Hospital Course: 88-year-old male with multiple medical problems including sick sinus syndrome status post pacemaker AFib pulmonary fibrosis advanced COPD peripheral artery disease acute on chronic diastolic heart failure came in for abdominal pain nausea and vomiting. Found to have enterocolitis by CT abdomen pelvis without contrast and started on Rocephin Flagyl stool cultures came positive for C diff colitis Flagyl 500 mg IV q.8 hours was continued fistula be given for two weeks and also started on vancomycin 125 mg p.o. q.i.d.. Seen by [facility] Dr. Escobar for patient with a coronary artery disease status post CABG. For Dr. Escobar is not a candidate for heart catheterization at the present time because of infection. He also has a bladder calculi and diverticuli Dr. Price advised conservative management [facility] for two weeks for C diff colitis. the plan is agreeable with the patient's daughter Trinh at the bedside Consults/Reason for consult Cardiology Dr. Escobar GI Dr. Kory Hernandes Operations or Procedures CT abdomen pelvis without contrast Condition at Discharge: Fair Final Diagnosis/Problems List Acute Abdominal pain Acute enterocolitis: Rocephin Flagyl C diff colitis: Flagyl 500 mg IV q.8 hours, vancomycin 125 mg p.o. QID Acute on chronic Diastolic heart failure Coronary artery disease, status post CABG : Cardiology consult by Dr. Escobar appreciated, per Dr. Escobar, not a candidate for heart catheterization secondary to current infection Valvular heart disease, status post aortic valve replacement Persistent AFib Sick sinus syndrome, status post pacemaker implantation Pulmonary fibrosis/advanced COPD Peripheral artery disease Carotid artery stenosis Acute hypokalemia: Replace kcl Dementia Bladder Calculi and diverticuli: Urology consult for Dr. Go appreciated, advised conservative management Hearing impairment Hypertension Hyperlipidemia Discharge Disposition: Acute Care Facility Discharge Instruct/Medications Diet: Cardiac 2g Na,low cholest Activity: Light activity Follow Up/Referral: Follow up with the long-term Medications: see list Flagyl 500 mg IV q.8 hours for two weeks 39 (Time taken for discharge summary 39 minutes) Discharge Statement: "Patient was advised to return to the ER or call 911 if any headaches, dizziness, shortness of breath, chest pain, abdominal pain, bleeding, fevers, or worsening of medical condition. Patient was counseled about treatment plan, medications, possible side effects, patientverbalized understanding. All questions were answered to the best of my ability. This discharge took greater then 30 minutes in planning, reviewing documentation, counseling the patient, and discussing with other team members." ASSESSMENT ASSESSMENT Hospital Course Marginally improved Assessment Acute Abdominal pain Acute enterocolitis: Rocephin Flagyl C diff colitis: Flagyl 500 mg IV q.8 hours, vancomycin 125 mg p.o. QID Acute on chronic Diastolic heart failure Coronary artery disease, status post CABG : Cardiology consult by Dr. Escobar appreciated, per Dr. Escobar, not a candidate for heart catheterization secondary to current infection Valvular heart disease, status post aortic valve replacement Persistent AFib Sick sinus syndrome, status post pacemaker implantation Pulmonary fibrosis/advanced COPD Peripheral artery disease Carotid artery stenosis Acute hypokalemia: Replace kcl Dementia Bladder Calculi and diverticuli: Urology consult for Dr. Go appreciated, advised conservative management Hearing impairment Hypertension Hyperlipidemia Date of Service: May 27, 2024 Billing Provider: JAVON GUTIERREZ MD Common Visit Codes: [id number] DISCH DAY >30min JAVON GUTIERREZ MD May 27, 2024 10:59
--- NOTE | 2024-05-27 11:42 | DVH ---
US CHEST ULTRASOUND, HISTORY: FLUID CHECK FOR POSSIBLE THORACENTESIS COMPARISON(S): None TECHNICAL DATA: Transverse and longitudinal images are obtained of the chest. FINDING: IMPRESSION(S): There is moderate bilateral pleural effusion.
--- NOTE | 2024-05-27 14:16 | DVH ---
XY CHEST PORTABLE, HISTORY: POST THORACENTESIS COMPARISON: XY CHEST XRAY 1 VIEW on DOS: 05/22/24 XY CHEST XRAY 1 VIEW on DOS: 05/22/24 TECHNICAL DATA: 1 view of the chest was obtained. FINDINGS: Lines and tubes: A cardiac pacer is seen. Cardiomediastinal silhouette: Enlarged Pulmonary vasculature: prominent Lung expansion: low Lung airspace: Patchy multifocal airspace opacity Lung interstitium: increased Pleura: left pleural effusion Pneumothorax: no Bones: Unremarkable Other: no IMPRESSION: No pneumothorax seen.
--- NOTE | 2024-05-27 14:36 | DVH ---
US THORACENTESIS, HISTORY: pleural effusion PROCEDURE: Informed consent was obtained. The patient was on his side on the bed. A limited localizat ion ultrasound of the right thorax was obtained, and the optimal approach was marked on the skin. The area was prepped with chlorhexidine which was allowed to dry and draped in the usual sterile fashion . Time out was performed. The skin and the soft tissues were infiltrated with 1% lidocaine. A 5.5 Babak nch centesis needle catheter was advanced into right pleural space. Following aspiration of fluid, th e catheter was advanced and the needle removed. About 650 cc of fluid was drained. Specimen/s was/wer e sent for appropriate cultures/cytology/cultures and cytology. No immediate complication was identif ied. FINDINGS: moderate left pleural effusion. Aspirated fluid is clear and serous. IMPRESSION: Left thoracentesis with 650 mL removed.
[2024-05-27 14:47] LABS: Band Neutrophils % (manual) 0; Basophils % (manual) 0 (0.0-2.0); Blast Cells 0; Metamyelocytes % 0; Myelocytes % 0; Promyelocytes % 0; Reactive Lymphocytes 0
[2024-05-27 15:10] LABS: Eosinophils % (manual) 6 (0-7); Lymphocytes % (manual) 24 (10.0-50.0); Monocytes % (manual) 8 (0-12)
[2024-05-27 15:12] LABS: Large Platelets FEW; Platelet Estimate Adequa
[2024-05-27 15:56] LABS: Platelet Count (auto) 156 10^3/uL (140-450)
[2024-05-27 16:28] LABS: Body Fluid Polymorphonuclear 38 % (0-25); Body Fluid Red Blood Cells 460 CUMM (0-2000); Body Fluid White Blood Cells 170 CUMM (0-200)
[2024-05-28 01:00] VITALS: BP 106/44; PULSE 75; RESP 18; TEMP 97.5; O2SAT 97
[2024-05-28 05:00] VITALS: BP 107/46; PULSE 79; RESP 18; TEMP 97.8; O2SAT 96
[2024-05-28 06:33] LABS: Basophils # (auto) 0 10 ^3/uL (0-0.2); Eosinophils # (auto) 0.2 10 ^3/uL (0-0.8); Eosinophils % (auto) 4.8 % (0.0-7.0); Hematocrit 42.4 % (41.0-53.0); Hemoglobin 14.3 g/dL (13.5-17.5); Lymphocytes # (auto) 0.7 10 ^3/uL (0.4-5.4); Lymphocytes % (auto) 16.1 % (10.0-50.0); Mean Corpuscular Hemoglobin 35.8 pg (28.0-32.0); Mean Corpuscular Hgb Conc. 33.7 g/dL (32.0-36.0); Mean Corpuscular Volume 106.2 fL (80.0-100.0); Monocytes # (auto) 0.5 10 ^3/uL (0-1.3); Monocytes % (auto) 11.6 % (0.0-12.0); Neutrophils # (auto) 2.8 10 ^3/uL (1.6-8.6); Neutrophils % (auto) 66.5 % (37.0-80.0); Nucleated Red Blood Cells % 0.1 %; Platelet Count (auto) 157 10^3/uL (140-450); Red Blood Cells 3.99 10^6/uL (4.5-5.90); White Blood Cell 4.2 10^3/uL (4.4-10.8)
[2024-05-28 06:51] LABS: COVID19 ANTIGEN SOFIA FIA NEGATIVE (NEGATIVE)
--- NOTE | 2024-05-28 06:54 | DVHPN2 ---
Progress Note - Dictate Date Seen: May 28, 2024 Medical Necessity Reason Pt with a Central, PICC or Fol: No vital signs Vital Sign Date Time Temp Pulse Resp B/P (MAP) Pulse Ox O2 Delivery O2 Flow Rate FiO2 05/28/24 05:00 97.8 79 18 107/46 (66) 96 97.8 05/27/24 20:00 Nasal Cannula* 2 28 Total Intake and Output 05/27/24 05/27/24 05/28/24 15:00 23:00 07:00 Intake Total 480 ml 700 ml 500 ml Output Total 1100 ml 750 ml Balance 480 ml -400 ml -250 ml medications Current Medications Medications Dose Ordered Sig/Taryn Route Start Time Stop Time Status Last Admin Dose Admin Metronidazole 100 ml @ 100 mls/hr Q8HR IV 05/23/24 06:00 05/28/24 04:59 100 MLS/HR Furosemide 20 mg DAILY IV 05/23/24 10:00 05/27/24 10:58 20 MG Sodium Chloride 10 ml Q8HR IV 05/23/24 06:00 05/28/24 04:53 10 ML Ondansetron HCl 4 mg Q4HP PRN IV 05/22/24 23:45 Tamsulosin HCl 0.4 mg QPM PO 05/23/24 18:00 05/27/24 18:31 0.4 MG Famotidine 20 mg DAILY IV 05/23/24 10:00 05/27/24 10:58 20 MG Nitroglycerin 0.4 mg Q5MINP PRN SL 05/23/24 02:00 Morphine Sulfate 2 mg Q30M PRN IV 05/23/24 02:00 Apixaban 2.5 mg BID PO 05/23/24 10:00 05/27/24 21:47 2.5 MG Carvedilol 3.125 mg Q12HR PO 05/24/24 10:00 05/27/24 21:49 3.125 MG Sacubitril/ Valsartan 1 tab BID PO 05/24/24 10:00 05/27/24 21:47 1 TAB Loperamide HCl 2 mg PRN PRN PO 05/24/24 12:15 05/24/24 14:27 2 MG Vancomycin HCl 125 mg QID PO 05/24/24 18:00 05/28/24 04:59 125 MG Acetaminophen 650 mg Q6HP PRN PO 05/25/24 06:45 05/25/24 15:22 650 MG Saccharomyces Boulardii 250 mg DAILY PO 05/26/24 10:00 05/27/24 10:58 250 MG Cholestyramine Resin 4 gm Q12HR@11,23 PO 05/25/24 23:00 05/27/24 23:52 4 GM Artificial Tears 1 drop Q6HP PRN EACHEYE 05/27/24 16:00 laboratory and microbiology Laboratory Tests 05/28/24 05:23 Test 05/28/24 05:23 Range/Units Serum Glucose Pending Assessment/Plan Patient is a 88-year-old gentleman who presented to the hospital with days of abdominal pain and diarrhea. He did receive some course of antibiotics as outpatient recently. Patient is known to our practice from outside and before. Cardiology is involved for cardiac aspects of care. Patient does have history of coronary artery disease and has had CABG and aortic valve replacement before. Does have pacemaker and does have persistent atrial fibrillation. His history also includes advanced pulmonary fibrosis on home oxygen. Elderly gentleman with poor functional capacity and frail. No JVD. Mucosa is pink and wet. No carotid bruit. Lungs reveal scattered rhonchi and crackles. Cardiac: Regular, no thrill/gallop. Systolic murmur 3/6 in the apex is heard. Abdomen is soft. Bowel sound is positive. There is no peripheral edema. Dorsalis pedis is 1+ bilateral. 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 BNP: 1583.60 - 1931.31 Troponin (high sensitive): 74 - 73 - 79 - 87 - 87 D-dimer: 2.85 CDT DNA: Detected Chest x-ray reported: Lines and Tubes: Dual-lead pacemaker overlying left chest wall. Lungs: Pulmonary edema. Pleura: Probable small bilateral pleural effusions. No pneumothorax. Cardiomediastinal contours: Moderate cardiomegaly. Bones: Unremarkable IMPRESSION: Cardiomegaly and pulmonary edema. CT of the abdomen and pelvis reported: IMPRESSION: 1. Motion limited study. 2. Perirectal inflammatory changes, possible proctitis. 3. Enlarged prostate with impression on the bladder base. 4. Multiple bladder diverticula and bladder calculi. 5. Partially visualized small right and moderate left pleural effusions with overlying atelectasis. 6. Partially visualized cardiomegaly and additional findings as detailed above. 7. Nonspecific nondilated fluid-filled small bowel loops. Findings may be seen with ileus or enteritis in the appropriate clinical setting. No small bowel obstruction. 8. Left inguinal hernia contains a loop of sigmoid colon without evidence for obstruction. CTA of chest revealed: IMPRESSION: 1. No large central pulmonary embolism. Questionable small embolus in the left lower lobe segmental branch could be artifact. Attention on follow-up is recommended. 2. Moderate to large bilateral pleural effusions. Patchy consolidation and septal thickening in both lungs. Likely congestive failure or fluid overload with possible superimposed infectious / inflammatory process. Clinical correlation and continued follow-up is recommended. Venous duplex of lower ext revealed: Impression: 1. No right or left femoropopliteal venous thrombosis. EKG revealed baseline atrial fibrillation with paced ventricular rhythm Echocardiogram reported: Sinus rhythm. Concentric LVH. Biatrial enlargement. Moderate mitral annular calcification. Immobility of the posterior mitral leaflet. Diminished excursion of the leaflets secondary to poor cardiac output. Aortic valve appears to be sclerotic. Possible TAVR valve. Diminished excursion of the leaflets. Moderate calcification noted. The tricuspid and pulmonic normal. Left ventricular function is diminished. EF is approximately 20% with severe anterior apical hypokinesis. [id number] hypokinesis of the inferior lateral wall. There is a peak gradient of24 mmHg across the aortic valve with a mean gradient of 13. Aortic valve area at 1.2 cm2. Moderate tricuspid regurgitation. Right ventricular systolic pressure of55 mmHg. No pericardial effusion masses or vegetations discernible. [employer] [place] interrogation: Remaining battery capacity: 41%; Voltage: 2.96 volts; DDIR: 75; AP: 3%; HEAD OPERATOR: 83% ; AT/AF burden: > 99% Lead impedance: A 350/V 410 Ohms; Normal working pacemaker Patient is a 88-year-old gentleman who does have dementia and poor hearing and presented with abdominal pain and diarrhea. Has been having diarrhea for few days. There is question about weight loss. Completed some course of antibiotics recently. Comorbidities includes coronary artery disease/atrial fibrillation/peripheral artery disease/carotid artery stenosis/dementia/poor functional capacity. Troponin was minimally elevated and flat. Presentation is not considered acute coronary syndrome Increased BNP points toward component of heart failure. Echo revealed systolic heart failure which is new finding for patient. As patient with new systolic heart failure, ischemic work up / LHC can be justified. Will wait until stability and resolution of diarrhea before LHC. Abdominal pain Diarrhea C-Diff colitis Diastolic heart failure Coronary artery disease, status post CABG Valvular heart disease, status post aortic valve replacement Persistent AFib Sick sinus syndrome, status post pacemaker implantation Pulmonary fibrosis/advanced COPD Peripheral artery disease Carotid artery stenosis Dementia Poor hearing Hypertension Hyperlipidemia Proctitis/ileus/enteritis Systolic heart failure. Pulmonary Emboli? (on Eliquis) Cardiac suggestion for management: Managed on telemetry Follow-up electrolytes and kidney function tests and correct abnormalities Continuation of anticoagulation is suggested GDMT for systolic heart failure. On Entresto/Coreg As patient with new systolic heart failure, ischemic work up / LHC can be justified. Will wait until stability and resolution of diarrhea before LHC (possibly as outpatient) C-Diff management as per primary team Further evaluation and management depends on the above and clinical course A total of 55 minutes was spent reviewing the patient record, examining the patient, making a diagnostic and therapeutic plan, discussing this plan with medical personnel, following up on diagnostic studies and following the patient for clinical stability excluding any and all procedures. At least 50% of this time was spent in direct, [id number] contact. Thank you for allowing me to participate in this patient's care. Further recommendations will depend on patient's clinical course. Please do not hesitate to contact me if you have any questions or concerns. This medical document was created using electronic medical record system with [employer] computerized dictation system. Although this document has been carefully reviewed, there may still be some phonetic and typographical errors. These areas are purely typographical due to the imperfection of the software programs, and do not reflect any compromise in the patient's medical care. Plan discussed with: Patient, Other (nurse) CARLOS OGLESBY MD May 28, 2024 06:54
[2024-05-28 07:02] LABS: Alkaline Phosphatase 53 U/L (46-116); Anion Gap 6 (5-15); BUN/Creatinine Ratio 8.9 (10.0-20.0); Carbon Dioxide 26 mmol/L (20-31); Chloride 107 mmol/L (98-107); Glucose 89 mg/dL (74-106); Sodium 139 mmol/L (136-145)
[2024-05-28 07:03] LABS: Aspartate Aminotransferase 14 U/L (13-40)
[2024-05-28 07:04] LABS: Bilirubin, Total 0.6 mg/dL (0.2-1.0)
[2024-05-28 07:18] LABS: Alanine Aminotransferase < 9 U/L (7-40); Albumin 2.7 g/dL (3.2-4.8); Blood Urea Nitrogen 7 mg/dL (9-23); Calcium 8.5 mg/dL (8.7-10.4); Potassium 3.4 mmol/L (3.5-5.1); Total Protein 4.7 g/dL (5.7-8.2)
[2024-05-28 08:00] VITALS: PULSE 65; RESP 16
[2024-05-28 09:00] VITALS: BP 109/52; PULSE 77; RESP 20; TEMP 97.9; O2SAT 98
--- NOTE | 2024-05-28 10:18 | DVHPN2 ---
Reviewed: Care Plan, H&P, Labs, Medications, Previous Orders, Radiology Changes from previous H/P or p: No Changes Eyes: No Pain, No Vision change, No Conjunctivae inflammation, No Eyelid inflammation, No Other, No Redness ENT: No Ear pain, No Ear discharge, No Nose pain, No Nose discharge, No Nose congestion, No Mouth pain, No Mouth swelling, No Throat pain, No Throat swelling, No Other Cardiovascular: No Chest Pain, No Palpitations, No Orthopnea, No Paroxysmal Noc. Dyspnea, No Edema, No Lt Headedness, No Other Respiratory: No Cough, No Dry; Shortness of breath; No SOB with excertion, No Wheezing, No Hemoptysis, No Pleuritic Pain, No Sputum, No Other Gastrointestinal: No Nausea, No Vomiting; Abdominal Pain, Diarrhea; No Constipation, No Melena, No Hematochezia, No Other Genitourinary: No Dysuria, No Frequency, No Incontinence, No Hematuria, No Retention, No Other Musculoskeletal: No other, No neck pain, No shoulder pain, No arm pain, No back pain, No hand pain, No leg pain, No foot pain Skin: No Rash, No Lesions, No Jaundice, No Bruising, No Other Objective Vitals Vital Signs Date Time Temp Pulse Resp B/P (MAP) Pulse Ox O2 Delivery O2 Flow Rate FiO2 05/28/24 09:00 97.9 77 20 109/52 (71) 98 97.9 05/27/24 20:00 Nasal Cannula* 2 28 Intake/Output Intake and Output 05/28/24 07:00 Intake Total 1680 ml Output Total 1850 ml Balance -170 ml Intake Oral 1480 ml IV Total 200 ml Output Urine Total 1850 ml # Bowel Movements 3 Medications Current Medications Medications Dose Ordered Sig/Taryn Route Start Time Stop Time Status Last Admin Dose Admin Metronidazole 100 ml @ 100 mls/hr Q8HR IV 05/23/24 06:00 05/28/24 04:59 100 MLS/HR Furosemide 20 mg DAILY IV 05/23/24 10:00 05/27/24 10:58 20 MG Sodium Chloride 10 ml Q8HR IV 05/23/24 06:00 05/28/24 04:53 10 ML Ondansetron HCl 4 mg Q4HP PRN IV 05/22/24 23:45 Tamsulosin HCl 0.4 mg QPM PO 05/23/24 18:00 05/27/24 18:31 0.4 MG Famotidine 20 mg DAILY IV 05/23/24 10:00 05/27/24 10:58 20 MG Nitroglycerin 0.4 mg Q5MINP PRN SL 05/23/24 02:00 Morphine Sulfate 2 mg Q30M PRN IV 05/23/24 02:00 Apixaban 2.5 mg BID PO 05/23/24 10:00 05/27/24 21:47 2.5 MG Carvedilol 3.125 mg Q12HR PO 05/24/24 10:00 05/27/24 21:49 3.125 MG Sacubitril/ Valsartan 1 tab BID PO 05/24/24 10:00 05/27/24 21:47 1 TAB Loperamide HCl 2 mg PRN PRN PO 05/24/24 12:15 05/24/24 14:27 2 MG Vancomycin HCl 125 mg QID PO 05/24/24 18:00 05/28/24 04:59 125 MG Acetaminophen 650 mg Q6HP PRN PO 05/25/24 06:45 05/25/24 15:22 650 MG Saccharomyces Boulardii 250 mg DAILY PO 05/26/24 10:00 05/27/24 10:58 250 MG Cholestyramine Resin 4 gm Q12HR@11,23 PO 05/25/24 23:00 05/27/24 23:52 4 GM Artificial Tears 1 drop Q6HP PRN EACHEYE 05/27/24 16:00 Laboratory Results Laboratory Tests 05/28/24 05:23 Chemistry Test 05/28/24 05:23 Albumin 2.7 g/dL (3.2-4.8) L Calcium Level 8.5 mg/dL (8.7-10.4) L Total Protein 4.7 g/dL (5.7-8.2) L LFT Test 05/28/24 05:23 Alanine Aminotransferase (ALT) < 9 U/L (7-40) Alkaline Phosphatase 53 U/L (46-116) Aspartate Amino Transferase (AST) 14 U/L (13-40) Total Bilirubin 0.6 mg/dL (0.2-1.0) Urinalysis Test 05/22/24 18:44 Urine Color Yellow (Yellow) Urine Clarity Clear (Clear) Urine pH 5.5 (5.0-9.0) Urine Specific [place] 1.017 (1.001-1.035) Urine Protein Trace (Negative) H Urine Ketones Negative (Negative) Urine Blood 2+ /uL (Negative) H Urine Nitrite Negative (Negative) Urine Bilirubin Negative (Negative) Urine Urobilinogen Normal mg/dL (Negative) Urine Leukocyte Esterase Negative /uL (Negative) Urine RBC 80 /hpf (0 - 3) Urine Microscopic WBC 3 /HPF (0-3) Urine Squamous Epithelial Cells Few /hpf (<5) Urine Bacteria None seen /hpf (None Seen) Urine Hyaline Casts Few /lpf (0 - 2) Urine Mucus Few (None Seen) Urine Glucose Normal mg/dL (Normal) Microbiology Microbiology Date/Time Source Procedure Growth Status 05/27/24 13:55 Pleural Fluid Gram Stain - Final Resulted 05/27/24 13:55 Pleural Fluid Aerobic Culture - Preliminary Resulted 05/23/24 14:40 Blood Blood Culture - Preliminary NO GROWTH AFTER 72 HOURS OF INCUBATION. Resulted 05/23/24 09:00 Stool Stool Culture - Final Complete 05/23/24 09:00 Stool Shiga Toxin I & II - Final Complete 05/23/24 09:00 Stool Clostridium difficile Toxin Assay - Final Complete Labs and/or images reviewed: Labs reviewed by me, Image(s) reviewed by me Assessment/Plan Assessment/Plan Acute Abdominal pain Acute enterocolitis: Rocephin Flagyl C diff colitis: Flagyl 500 mg IV q.8 hours, vancomycin 125 mg p.o. QID Acute on chronic Diastolic heart failure Coronary artery disease, status post CABG : Cardiology consult by Dr. Escobar appreciated, per Dr. Escobar, not a candidate for heart catheterization secondary to current infection Valvular heart disease, status post aortic valve replacement Persistent AFib Sick sinus syndrome, status post pacemaker implantation Pulmonary fibrosis/advanced COPD Peripheral artery disease Carotid artery stenosis Acute hypokalemia: Replace kcl Dementia Bladder Calculi and diverticuli: Urology consult for Dr. Go appreciated, advised conservative management Hearing impairment Hypertension Hyperlipidemia Right pleural effusion status post thoracentesis with removal of 650 mL of fluid by the radialogist on 05-27-24 Left pleural effusion: Patient getting thoracentesis today by radialogist Daughter Megan [phone] at bed side Patient is being discharged to intermediate facility for IV antibiotics for two weeks for C diff colitis Plan Is acceptable with the patient's daughter Plan discussed with: Patient My Orders Orders - JAVON GUTIERREZ MD Procedure Category Date Status Time * [employer]in[employer] CONS 05/27/24 Transmitted Consult * Radiologist Consult CONS 05/27/24 Transmitted 10:46 Thoracentesis US 05/27/24 Resulted Discharge DISCHARGE 05/28/24 Transmitted 10:00 Artificial Tear 15ml PHA 05/27/24 In Process Opthalmic (Tears Na 16:00 Thoracentesis US 05/28/24 Logged 08:47 Date of Service: May 28, 2024 Billing Provider: JAVON GUTIERREZ MD Common Visit Codes: 12824-[id number] INP/OBS CARE(HIGH) JAVON GUTIERREZ MD May 28, 2024 10:18
--- NOTE | 2024-05-28 10:55 | DVH ---
CHEST RADIOGRAPH Indication: s/p left thoracentesis Technique: Single frontal view of the chest was obtained COMPARISON: XY CHEST PORTABLE on DOS: 05/27/24, XY CHEST XRAY 1 VIEW on DOS: 05/22/24 FINDINGS: Lines and Tubes: Median sternotomy. Left chest wall pacemaker. Lungs: Clear Pleura: No effusion. No pneumothorax. Cardiomediastinal contours: Valve replacement. Bones: Unremarkable IMPRESSION: Pulmonary vascular congestion. No appreciable pneumothorax.
--- NOTE | 2024-05-28 11:10 | DVH ---
PROCEDURE: ULTRASOUND GUIDED THORACENTESIS USING TEMPORARY CATHETER HISTORY: PLEURAL EFFUSION DOCUMENTATION: Informed consent was obtained and a procedural time out was performed. FINDINGS: The risks and benefits of the procedure including bleeding, infection and pneumothorax were explained to the patient and written informed consent obtained. Optimal site for puncture long the LEFT posterior chest wall was determined using real-time ultrasou nd and the region sterilized. Local anesthesia was instilled. A 5 Palestinian catheter was then advanced into the pleural space and 1.5 liters of straw colored flui d was removed. The patient tolerated the procedure well. IMPRESSION: Ultrasound guided LEFT thoracentesis. Procedure by Dr. Alberts
[2024-05-28 12:07] LABS: Protein, Body Fluid 1.8 g/dL (.)
[2024-05-28 12:20] LABS: Body Fluid Red Blood Cells 781 CUMM (0-2000); Body Fluid White Blood Cells 210 CUMM (0-200)
[2024-05-28 12:27] LABS: Body Fluid Polymorphonuclear 36 % (0-25)
[2024-05-28] MEDS: ARTIFICIAL TEARS 15ml EACHEYE PRN (12:27)
[2024-05-28 13:00] VITALS: BP 108/45; PULSE 75; RESP 22; TEMP 96.4; O2SAT 97
[2024-05-28 14:29] VITALS: BP 112/45; PULSE 75; RESP 22; TEMP 97.3; O2SAT 97
[2024-05-29 11:07] LABS: Protein, Body Fluid 2.3 g/dL (.)
== END 2024-05-28 15:50 | DRG 371 ==
LOC: ER 17:10 → EDBD 17:10 → OVERFLOW 05-23 01:53 → TELE-WESTW 05-23 06:08 → TELE-EAST 05-24 20:40
PROVIDERS: ADMIT Family Medicine; ATTEND Family Medicine
PROC: 4B02XSZ Measurement of Cardiac Pacemaker, External Approach (ICD-10-PCS; principal; 2024-05-27)
PROC: 0W9B3ZX Drainage of Left Pleural Cavity, Percutaneous Approach, Diagnostic (ICD-10-PCS; 2024-05-27)
PROC: 0W9B3ZX Drainage of Left Pleural Cavity, Percutaneous Approach, Diagnostic (ICD-10-PCS; 2024-05-28)
DX: A04.72 Enterocolitis due to Clostridium difficile, not specified as recurrent (principal); I50.43 Acute on chronic combined systolic (congestive) and diastolic (congestive) heart failure; K56.7 Ileus, unspecified; I48.19 Other persistent atrial fibrillation; N13.8 Other obstructive and reflux uropathy; J91.8 Pleural effusion in other conditions classified elsewhere; I11.0 Hypertensive heart disease with heart failure; J84.10 Pulmonary fibrosis, unspecified; N21.0 Calculus in bladder; N40.1 Benign prostatic hyperplasia with lower urinary tract symptoms; J44.9 Chronic obstructive pulmonary disease, unspecified; K62.89 Other specified diseases of anus and rectum; E87.6 Hypokalemia; F03.90 Unspecified dementia, unspecified severity, without behavioral disturbance, psychotic disturbance, mood disturbance, and anxiety; E03.9 Hypothyroidism, unspecified; E78.5 Hyperlipidemia, unspecified; I08.1 Rheumatic disorders of both mitral and tricuspid valves; I25.10 Atherosclerotic heart disease of native coronary artery without angina pectoris; I73.9 Peripheral vascular disease, unspecified; N32.3 Diverticulum of bladder; R32 Unspecified urinary incontinence; Z79.01 Long term (current) use of anticoagulants; Z79.899 Other long term (current) drug therapy; Z88.6 Allergy status to analgesic agent; Z95.0 Presence of cardiac pacemaker; Z95.1 Presence of aortocoronary bypass graft; Z95.2 Presence of prosthetic heart valve; Z79.82 Long term (current) use of aspirin; Z79.02 Long term (current) use of antithrombotics/antiplatelets; Z88.8 Allergy status to other drugs, medicaments and biological substances
CPT/HCPCS: 32555; 36415; 71045; 71275; 74176; 76604; 76942; 80053; 81001; 82270; 82962; 83605; 83615; 83880; 83986; 84484; 85025; 85048; 85379; 85610; 87040; 87045; 87070; 87205; 87426; 87427; 87493; 89051; 93005; 93306; 93970; 96361; 96365; 96367; 96375; 97163; G0378; J3490